=== PATIENT | male | born 1960 | race Caucasian/White ===

== ENCOUNTER → 2017-08-20 16:04 | Outpatient (CLI) | payer OTHER, SELFPAY ==
--- NOTE | 2017-08-20 16:08 | MRI_ITS ---
STUDY: MRI RIGHT SHOULDER REASON FOR EXAM: Male, 57 years old. Pain. TECHNIQUE: Standardized fat and water weighted pulse sequences were obtained in all 3 orthogonal planes. COMPARISON: November 11, 2016 FINDINGS: There is tendon thickening with intratendinous decreased signal on all pulse sequences of the supraspinatus and infraspinatus and subscapularis tendons consistent with a calcific tendinitis, series 4 images 12/12 through . There is no full-thickness tear. Normal teres minor tendon. Normal supraspinatus muscle. Normal infraspinatus muscle. Normal subscapularis muscle. Normal teres minor muscle. Normal glenohumeral articulation. Normal humeral head and visualized proximal humerus. Normal biceps labral complex. Normal intracapsular long biceps tendon. Normal labrum. Normal capsulo- ligamentous complex. Normal rotator interval. 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 There is a Type I morphology (flat undersurface) acromion, with a neutral orientation. There is no subacromial-subdeltoid bursal fluid. Normal visualized coracohumeral and coracoacromial ligaments. Normal quadrilateral space. Normal axillary space. Normal deltoid muscle. Normal trapezius muscle. MRI/Upper Ext Joint Only(Routine) IMPRESSION: Calcific tendinopathy of the rotator cuff. No full thickness tear.. Acromioclavicular spurring with impingement. Electronically Signed: Braulio Villeda MD at 23:12 EDT , Service support ,
== END ==
PROVIDERS: Family Provider Family Medicine; PCP Family Medicine; Visit Provider Orthopaedic Surgery
DX: M75.101 Unspecified rotator cuff tear or rupture of right shoulder, not specified as traumatic (principal); M75.41 Impingement syndrome of right shoulder
CPT/HCPCS: 73221

== ENCOUNTER → 2017-09-24 08:57 | Outpatient (CLI) | payer OTHER, SELFPAY ==
--- NOTE | 2017-09-24 09:00 | RAD_ITS ---
STUDY: X-RAY - CERVICAL SPINE REASON FOR EXAM: Male, 57 years old. Neck and right shoulder pain. TECHNIQUE: 5 view(s) of the cervical spine were obtained. COMPARISON: None FINDINGS: There are degenerative changes of the anterior atlantoaxial articulation. Normal odontoid process. Normal cervical lordosis. There is multi-level endplate spondylosis. There is moderate degenerative disc disease and narrowing at C5-6, as well as narrowing to a lesser degree at C3-4. 1 degenerative arthroses of the cervical facet articulations. Mild retrolisthesis of C5 on C6. There is multi-level osseous foraminal stenosis, as prominent on the left at C3-4. There are atherosclerotic vascular calcifications of the carotid arteries. There is no demonstrated osseous destructive process or acute fracture of the cervical spine. RAD/Cerv Spine 4 or 5 Views IMPRESSION: 1. Degenerative changes of the cervical spine, as described. 2. Bilateral carotid artery calcifications incidentally noted. Electronically Signed: Dexter Rivers MD at 13:26 EDT , Service support ,
== END ==
PROVIDERS: Family Provider Family Medicine; PCP Family Medicine; Visit Provider Orthopaedic Surgery
DX: M47.892 Other spondylosis, cervical region (principal); M50.322 Other cervical disc degeneration at C5-C6 level; M48.02 Spinal stenosis, cervical region; I65.23 Occlusion and stenosis of bilateral carotid arteries
CPT/HCPCS: 72050

== ENCOUNTER → 2017-10-13 09:29 | Outpatient (CLI) | payer OTHER, SELFPAY ==
--- NOTE | 2017-10-13 09:40 | MRI_ITS ---
STUDY: MRI CERVICAL SPINE WITHOUT CONTRAST REASON FOR EXAM: Male, 57 years old. Right-sided neck pain radiating to the right shoulder for 2 to 3 years. TECHNIQUE: Standardized fat and water weighted pulse sequences were obtained in the sagittal and axial planes. COMPARISON: None FINDINGS: Normal foramen magnum and brainstem-cervical cord junction. Normal craniovertebral junction. There are degenerative changes of the anterior atlantoaxial articulation. Normal odontoid process. Normal cervical lordosis. Normal vertebral bodies and posterior osseous elements. C2-3: Normal endplates. Normal disc height, signal and morphology. Normal central canal and intervertebral neural foramina. C3-4: Normal endplates. Normal disc height, signal and morphology. Normal central canal. There is severe left-sided neural foraminal narrowing with probable nerve impingement. There is moderate right-sided neural foraminal narrowing. There is moderate uncovertebral and facet joint arthropathy. C4-5: There is mild disc bulge and osteophyte complex. There is moderate left-sided neural foraminal narrowing and mild right-sided neural foraminal narrowing. There is no significant central acquired canal stenosis. There is uncovertebral joint hypertrophy. C5-6: There is moderately large right central broad disc protrusion with moderate acquired canal stenosis and probable impingement of spinal cord. There is severe bilateral neural foraminal narrowing, right greater left with probable nerve impingement. There is uncovertebral and facet joint arthropathy. C6-7: There is a broad central disc protrusion with mild central acquired canal stenosis. There is severe bilateral neural foraminal narrowing with probable nerve impingement. C7-T1: Normal endplates. Normal disc height, signal and morphology. Normal central canal and intervertebral neural foramina. Normal cervical cord. There is no demonstrated cervical cord syrinx cavity. Normal visualized soft tissue structures. MRI/Spine Cervical (Routine) IMPRESSION: Multilevel degenerative disc disease and degenerative arthropathy of cervical spine with acquired canal stenosis, neural foraminal narrowing and potential nerve impingement, as described. Electronically Signed: Sera Puentes MD at 11:21 EDT , Service support ,
== END ==
PROVIDERS: Family Provider Family Medicine; PCP Family Medicine; Visit Provider Orthopaedic Surgery
DX: M47.812 Spondylosis without myelopathy or radiculopathy, cervical region (principal); M50.31 Other cervical disc degeneration, high cervical region; M48.02 Spinal stenosis, cervical region
CPT/HCPCS: 72141

== ENCOUNTER → 2017-11-04 06:26 | Outpatient (CLI) | payer OTHER, SELFPAY ==
[2017-11-04 07:52] LABS: Hematocrit 43.2 % (40-54); Hemoglobin 15.3 g/dl (13.0-16.5); Mean Corp Hgb Conc 35.4 g/gl (32-36); Mean Corpuscular Hgb 30.8 pg (27.0-32.0); Mean Corpuscular Volume 87.1 fL (80-94); Mean Platelet Vol. 10.7 fl (6.2-12.0); Platelet Count 233 K/mm3 (150-450); RBC Distribution Width SD 40.3 fl (35.1-43.9); Red Blood Count 4.96 M/mm3 (4.6-6.2); White Blood Count 7.2 K/mm3 (4.4-11.0)
[2017-11-04 07:54] LABS: Scan Indicated on CBC? Y/N NO
[2017-11-04 08:22] LABS: ALB/GLOB Ratio 1.3 RATIO (0.9-2.4); AST(SGOT) 12 U/L (15-37); Alanine Aminotransfer ALT/SGPT 34 U/L (16-61); Albumin, Serum 4.1 g/dL (3.2-5.0); Alkaline Phosphatase 59 U/L (45-117); Anion Gap 7 (5-15); BUN 19 mg/dL (7-18); BUN/Creat Ratio 16.4 RATIO (10-20); Calcium,Total 8.7 mg/dL (8.5-10.1); Chloride 105 mmol/L (98-107); Cholesterol 101 mg/dL (200); Creatinine, Serum 1.16 mg/dL (0.70-1.30); EST Glomerular Filtration Rate 69 mL/min (>60); Est Glom Filt Rate - Afr Amer 84 mL/min (>60); Globulin 3.2 g/dL (2.2-4.2); Glucose 87 mg/dL (74-106); High Density Lipoprotein 39 mg/dL; Protein, Total 7.3 g/dL (6.4-8.2); Sodium Level 140 mmol/L (136-145); Triglycerides 219 mg/dL; Very Low Density Lipoprotein 44 mg/dL (5-40)
[2017-11-04 08:23] LABS: Hemoglobin A1c 8.1 % (4.2-6.3)
[2017-11-04 09:11] LABS: Microalbumin,Random Urine 7.6 mg/L (NO RANGE EST.); Microalbumin:Creatinine Ratio 5.4 mg/g CRE (<30 mg/g CRE)
== END ==
PROVIDERS: Family Provider Family Medicine; PCP Family Medicine; Visit Provider Internal Medicine
DX: E11.9 Type 2 diabetes mellitus without complications (principal)
CPT/HCPCS: 36415; 80053; 80061; 82043; 82570; 83036; 85027

== ENCOUNTER → 2018-01-13 06:33 | Outpatient (CLI) | payer OTHER, SELFPAY ==
[2018-01-13 08:19] LABS: Thyroid Stim Hormone (TSH) 3.27 uIU/mL (0.358-3.74)
[2018-01-13 09:12] LABS: Hemoglobin A1c 6.9 % (4.2-6.3)
== END ==
PROVIDERS: Family Provider Family Medicine; PCP Family Medicine; Visit Provider Internal Medicine
DX: E10.9 Type 1 diabetes mellitus without complications (principal)
CPT/HCPCS: 36415; 83036; 84443

== ENCOUNTER → 2018-03-13 07:14 | Outpatient (CLI) | payer OTHER, SELFPAY ==
[2018-03-13 08:39] LABS: Thyroid Stim Hormone (TSH) 3.05 uIU/mL (0.358-3.74)
[2018-03-16 14:07] LABS: Testosterone, Free 9.24 ng/dL (5.00-21.00)
[2018-03-17 14:29] LABS: Testosterone, % Free 2.98 % (1.50-4.20); Testosterone, Total 310 ng/dL (264-916)
== END ==
PROVIDERS: Family Provider Family Medicine; PCP Family Medicine; Referring Provider Family Medicine; Visit Provider Family Medicine
DX: E11.9 Type 2 diabetes mellitus without complications (principal); E78.2 Mixed hyperlipidemia
CPT/HCPCS: 36415; 84402; 84403; 84443

== ENCOUNTER 2018-05-07 08:21 | Emergency (ER) | payer OTHER, SELFPAY ==
[2018-05-07 08:23] VITALS: BP 126/84; PULSE 89; RESP 16; TEMP 35.8; O2SAT 97; BMI 24.9
--- NOTE | 2018-05-07 08:37 | ED.VISSUMM ---
- ER Visit Summary Date of Service: 05/07/18 Chief Complaint: Laceration History of Present Illness: The patient is a 58 M who presents with a small superficial laceration to his right index finger. Patient was in surgery and was accidentally cut with the tip of a scalpel that was used during surgery. Patient states the bleeding was mild. Patient cleaned the wound. Patient does not think that the source patient was positive for hepatitis or HIV. Patient denies any paresthesias or weakness. Patient states the bleeding stopped with pressure. Physical Examination: Vital signs are stable. Patient is afebrile. Patient is in no acute distress. Oral mucosa is pink and moist. Heart was regular rate and rhythm. Lungs are clear and equal bilaterally. There is good respiratory effort noted. Skin is warm and dry. There is a 1 mm superficial laceration over the distal phalanx of the right index finger. There is minimal bleeding. There is no gapping. Sensation was intact to light touch in all digits. Capillary refill is less than 2 seconds in all digits. There is full range of motion. The remaining physical exam is within normal limits. Test Results: Exposure protocol labs were obtained. Emergency Department Course and Treatment: Patient states his tetanus was within 10 years. Patient declined HIV and hepatitis B prophylaxis medications at this time. Patient was instructed to follow-up with employee health in 5-7 days. Patient was instructed to have the source patient tested for exposure protocols. Patient understood and was agreeable with the plan. All questions were answered. Disposition: Discharged Impression: Right index finger laceration Blood-borne exposure This note was generated with [employer] dictation software. It may contain incorrect words, spelling, and punctuation that were not noted in review of the chart prior to signing ED Disposition - Plan for ED Patient: Disposition: Home or Assisted Living Chief Complaint: Laceration Diagnosis: Laceration of right index finger w/o foreign body w/o damage to nail, Exposure to blood-borne pathogen Instructions: ED Laceration Small Superf No Sutr, Bloodborne Pathogens: If You're Exposed, Bloodborne Pathogens: After an Accident Referrals: Alexander Garibay DO [Primary Care Provider] -
[2018-05-07 10:39] LABS: HIV - WCH Non-Reactive (Nonreactive)
[2018-05-08 09:16] LABS: HEPATITIS B SURFACE AG Negative (Negative); Hep B Surface Antibodies EMP Reactive (.); Hep C Antibodies 0.1 s/co ratio (0.0-0.9)
--- OUTSIDE RECORDS SUMMARY | 2018-06-23 02:04 | XMS RPT_ITS ---
:1960 Author Organization OHIP Support Name Relationship Address Phone WARD MARTINEZ Unavailable Unavailable + [facility] Unavailable [address] + [place] [address] JUANWARD UGARTE Unavailable Unavailable + [facility] Unavailable [address] + [place] [address] WARD MARTINEZ Unavailable Unavailable + [facility] Unavailable [address] + [place] [address] WARD MARTINEZ Unavailable Unavailable + [facility] Unavailable [address] + [place] [address] JUAN WARD Unavailable Unavailable + [facility] Unavailable [address] + [place] [address] WARD MARTINEZ Unavailable Unavailable + [facility] Unavailable [address] + [place] [address] JUAN, WARD Unavailable Unavailable + [facility] Unavailable [address] + [place] [address] JUAN, WARD Unavailable . + ., [place] . [facility] Unavailable [address] + [place] [address] WARD MARTINEZ Unavailable . + ., [place] . [facility] Unavailable [address] + [place] [address] JUAN WARD Unavailable Unavailable + [facility] Unavailable [address] + [place] [address] JUANWARD UGARTE Unavailable . + ., [place] . [facility] Unavailable [address] + [place] [address] Care Team Providers Name Role Phone ALEXANDER GARIBAY Attending Unavailable PHOENIX, ALEXANDER Referring Unavailable Phoenix, Alexander Primary Care Unavailable Kristopher Granado Attending Unavailable RUDICK, JACQUELIN Attending Unavailable RUDICK, JACQUELIN Referring Unavailable Phoenix, Alexander Primary Care Unavailable Ward, Sunny Attending Unavailable Phoenix, Alexander Referring Unavailable Phoenix, Alexander Primary Care Unavailable Ward, Sunny Attending Unavailable Phoenix, Alexander Primary Care Unavailable Ward, Sunny Referring Unavailable Wrad, Sunny Attending Unavailable Phoenix, Alexander Referring Unavailable Phoenix, Alexander Primary Care Unavailable Ward, Sunny Attending Unavailable Ward, Sunny Referring Unavailable Phoenix, Alexander Primary Care Unavailable Ward, Sunny Attending Unavailable Ward, Sunny Referring Unavailable Phoenix, Alexander Primary Care Unavailable RUDICK, JACQUELIN Attending Unavailable RUDICK, JACQUELIN Referring Unavailable Phoenix, Alexander Primary Care Unavailable RUDICK, JACQUELIN Attending Unavailable RUDICK, JACQUELIN Referring Unavailable Phoenix, Alexander Primary Care Unavailable ASSESSMENT, HEALTH RISK Attending Unavailable ASSESSMENT, HEALTH RISK Referring Unavailable Phoenix, Alexander Primary Care Unavailable Phoenix, Alexander Attending Unavailable Phoenix, Alexander Referring Unavailable Phoenix, Alexander Primary Care Unavailable PROBLEMS PROBLEMS DATE TYPE CONDITION / CODE ATTENDING STATUS SOURCE 05/12/2018 Unknown S61.210A - Jethro Granadoic Active [place] Laceration without Community foreign body of Hospital right index finger Repository without damage to nail, initial encounter / S61.210A(ICD-10) 03/13/2018 Unknown E11.9 - Type 2 Phoenix Alexander Active [place] diabetes mellitus Community without Hospital complications / Repository E11.9(ICD-10) 01/13/2018 Unknown E10.9 - Type 1 MYRON, JACQUELIN Active [place] diabetes mellitus Community without Hospital complications / Repository E10.9(ICD-10) 10/13/2017 Unknown 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, Repository cervical region / M47.812(ICD-10) 09/24/2017 Unknown M54.2 - Cervicalgia Sunny Thomas [place] / M54.2(ICD-10) Community Hospital Repository 09/24/2017 Unknown M25.512 - Pain in Sunny Thomas left shoulder / Community M25.512(ICD-10) Hospital Repository 08/06/2017 Unknown M75.101 - Sunny Thomas Unspecified rotator Community cuff tear or Hospital rupture of right Repository shoulder, not specified as traumatic / M75.101(ICD-10) PROCEDURES PROCEDURES No Procedure Records FoundRESULTS RESULTS HEMOGLOBIN A1C Collected: 06/09/2018 Status: F Source: [place] 6:57 AM [facility] REPOSITORY TYPE CODE TESTS RESULT OUT OF RANGE REFERENCE UNITS LAB L501.9985 4.2-6.3 % High HGB A1C 8.0 Performed By: #### L501.9985 #### [facility] [address] [place], [address] HIV - [facility] Collected: 05/07/2018 Status: F Source: [place] 9:05 AM [facility] REPOSITORY Order Comment: Has pt arrived? Y TYPE CODE TESTS RESULT OUT OF RANGE REFERENCE UNITS LAB L3890.6005 Nonreactive Normal HIV - [facility] Non-Reactive Performed By: #### L3890.6005 #### [facility] [address] [place], [place], [address] HEPATITIS B SURFACE Collected: 05/07/2018 Status: F Source: [place] AG 9:05 AM [facility] REPOSITORY Order Comment: Has pt arrived? Y TYPE CODE TESTS RESULT OUT OF RANGE REFERENCE UNITS LAB L3100.0400 Negative Normal HB Negative SURF AG Result Comment: Performed at: - [facility] [id number] Manager Packaging: Javier Johns PhD, Phone: [phone] Performed By: #### L3100.0390, L3100.0567, L3100.0666 #### [facility] (refer to report for specific site) refer to report for address and phone number HEP B SURFACE Collected: 05/07/2018 Status: F Source: [place] ANTIBODIES EMP 9:05 AM [facility] REPOSITORY Order Comment: Has pt arrived? Y TYPE CODE TESTS RESULT OUT OF RANGE REFERENCE UNITS LAB L3100.0537 . Normal Hep B Reactive Ralph AB Result Comment: Non Reactive: Inconsistent with immunity, less than 10 mIU/mL Reactive: Consistent with immunity, greater than 9.9 mIU/mL Performed By: #### L3100.0390, L3100.0537, L3100.0625 #### [facility] (refer to report for specific site) refer to report for address and phone number HEPATITIS C ANTIBODIES Collected: 05/07/2018 Status: F Source: [place] 9:05 AM [facility] REPOSITORY Order Comment: Has pt arrived? Y TYPE CODE TESTS RESULT OUT OF RANGE REFERENCE UNITS LAB L3100.0650 0.0-0.9 s/co ratio Normal HEP C AB 0.1 Result Comment: Negative: < 0.8 Indeterminate: 0.8 - 0.9 Positive: > 0.9 The CDC recommends that a positive HCV antibody result be followed up with a HCV Nucleic Acid Amplification test (081928). Performed By: #### L3100.0390, L3100.0537, L3100.0625 #### [facility] (refer to report for specific site) refer to report for address and phone number EMERGENCY DEPARTMENT Observed: 05/07/2018 Status: F Source: [place] SUMMARY 8:48 AM [facility] REPOSITORY [facility] Medical Records Department [address] [place] [address] Emergency Department Summary 05/07/18 0837 MR#: [id number] Acct: [id number] Name: CHRIS MARTINEZ Rep #: [id number] : 1960 58 From: Kristopher Granado DO PCP: Alexander Garibay DO Status: PRE ER - ER Visit Summary Date of Service: 05/07/18 Chief Complaint: Laceration History of Present Illness: The patient is a 58 M who presents with a small superficial laceration to his right index finger. Patient was in surgery and was accidentally cut with the tip of a scalpel that was used during surgery. Patient states the bleeding was mild. Patient cleaned the wound. Patient does not think that the source patient was positive for hepatitis or HIV. Patient denies any paresthesias or weakness. Patient states the bleeding stopped with pressure. Physical Examination: Vital signs are stable. Patient is afebrile. Patient is in no acute distress. Oral mucosa is pink and moist. Heart was regular rate and rhythm. Lungs are clear and equal bilaterally. There is good respiratory effort noted. Skin is warm and dry. There is a 1 mm superficial laceration over the distal phalanx of the right index finger. There is minimal bleeding. There is no gapping. Sensation was intact to light touch in all digits. Capillary refill is less than 2 seconds in all digits. There is full range of motion. The remaining physical exam is within normal limits. Test Results: Exposure protocol labs were obtained. Emergency Department Course and Treatment: Patient states his tetanus was within 10 years. Patient declined HIV and hepatitis B prophylaxis medications at this time. Patient was instructed to follow-up with employee health in 5-7 days. Patient was instructed to have the source patient tested for exposure protocols. Patient understood and was agreeable with the plan. All questions were answered. Disposition: Discharged Impression: Right index finger laceration Blood-borne exposure This note was generated with Qianmi dictation software. It may contain incorrect words, spelling, and punctuation that were not noted in review of the chart prior to signing ED Disposition - Plan for ED Patient: Disposition: Home or Assisted Living Chief Complaint: Laceration Diagnosis: Laceration of right index finger w/o foreign body w/o damage to nail, Exposure to blood-borne pathogen Instructions: ED Laceration Small Superf No Sutr, Bloodborne Pathogens: If You're Exposed, Bloodborne Pathogens: After an Accident Referrals: Alexander Garibay, DO [Primary Care Provider] - What to do if you have Problems For any increased pain, shortness of breath, bleeding, nausea or vomiting, chest pain, or any unexpected problems, contact your Primary Care Provider. Call [facility] ([phone]) or report to the closest Emergency Room. Call 911 if necessary. 05/07/18 0848 <Electronically signed by Kristopher Granado DO> Date Kristopher Granado DO Cosigner Signature (If Indicated): Date CC: Alexander Garibay DO THYROID STIM HORMONE Collected: 03/13/2018 Status: F Source: [place] (TSH) 7:16 AM [facility] REPOSITORY TYPE CODE TESTS RESULT OUT OF RANGE REFERENCE UNITS LAB L501.9520 0.358-3.74 uIU/mL Normal TSH 3.05 Performed By: #### L501.9520 #### [facility] [address] [place], [address] TESTOSTERONE, TOTAL / Collected: 03/13/2018 Status: F Source: [place] FREE 7:16 AM [facility] REPOSITORY Order Comment: Has Patient had X-rays with Contrast this admission? N TYPE CODE TESTS RESULT OUT OF RANGE REFERENCE UNITS LAB L3100.5320 264-916 ng/dL Normal 310 TESTOSTER,TO PARAM Result Comment: Adult male reference interval is based on a population of healthy nonobese males (BMI <30) between 19 and 39 years old. Antwon et.al. JCEM 2017,102;2338-6496. PMID: [id number]. LAB L3100.5340 5.00-21.00 ng/dL TESTOSTER,FREE Normal 9.24 LAB L3100.5360 1.50-4.20 % TESTOSTER %FREE Normal 2.98 Result Comment: Performed at: - [facility] [address] [id number] Manager Packaging: Javier Johns PhD, Phone: [phone] Performed at: - [facility] [address] [id number] Manager Packaging: Ricardo Portillo MD, Phone: [phone] Performed By: #### L3100.5310 #### [facility]er [facility] for specific [facility] refer to report for address and phone number PROGRESS Observed: 02/13/2018 Status: COMPLETED Source: [place] 4:57 PM [facility] REPOSITORY HNO ID: [id number] Author: Alexander Garibay V Service: (none) Author Type: Physician Type: Progress Notes Filed: 02/13/2018 5:00 PM Note Text: Chris Martinez is a 58 year old male who presents in follow up of DM and Hyperlipidemia. overall feeing well. Discusses occasional mood issues. DIABETES MELLITUS: Mr. Martinez was last seen 1 year ago. Since our last visit he denies excessive thirst or increased frequency of urination, chest pain or dyspnea , new or unusual visual symptoms, lightheadedness/dizziness and bowel changes/loose stools. Follows a diabetic diet most of the time. He is compliant with medication(s) and is tolerating med(s) without any side effects. Patient's last HgA1C was 6.9% at endocrinologists office- Dr. Jacquelin Morris Last Ophthalmology exam was within the past 12 months Hyperlipidemia. Mr. Martinez reports doing well on current therapy of atorvastatin (Lipitor) 20 mg. Denies side effects of muscle weakness or achiness. His most recent lipid panels are: scanned into computer PHYSICAL EXAM: BP 133/83 (BP Site: Right Arm) Pulse 79 Resp 14 Ht 180.3 cm (5' 11) Wt 81.6 kg (180 lb) BMI 25.10 kg/m? BMI 25.10 kg/(m2) General appearance: Alert, cooperative, pleasant, in no acute distress Head: Normocephalic, atraumatic Eyes: conjunctiva/corneas normal, PERRL Oropharynx: moist without lesions, teeth in good repair Neck: supple and no JVD Heart: regular rate and rhythm, without murmur Lungs: clear to auscultation, without rales or wheeze, good air exchange Abdomen:soft, nondistended, nontender, no hepatosplenomegaly or masses Assessment/Plan: 1. Diabetes Mellitus Controlled. - Continue current medications 2. Hyperlipidemia - good control - Continue current medication. additional labs ordered today see epic Alexander Garibay DO PROGRESS Observed: 02/13/2018 Status: COMPLETED Source: [place] 3:49 PM [facility] REPOSITORY HNO ID: [id number] Author: Dannielle Wyman) KENROY Ortez Service: (none) Author Type: Registered Nurse Type: Progress Notes Filed: 02/13/2018 5:00 PM Note Text: AMB ROOMING INTAKE FLOWSHEET DATA Risk Screening Do you have concerns about personal safety or safety in the home?: No Pain Pain Score: 2/10 Pain Location: (all fingers ) Description: Sharp Duration Amount of Time: 2 Duration Units: Days Comments: None Patient presents with: Established Patient: annual physical patient is here for yearly physical. Dannielle Ortez RN CNOV Observed: 02/13/2018 Status: COMPLETED Source: [place] 3:40 PM [facility] REPOSITORY Office Visit (UC) CHRIS MARTINEZ ([id number]) 1960 M Date Time Provider Department 02/13/18 3:40 PM ALEXANDER GARIBAY During your visit today, we recorded the following information about you: Pulse Respiration Blood pressure Weight 79/minute 14/minute 133/83 81.6 kg Height 1.803 m Dannielle Ortez RN, RN 02/13/2018 5:00 PM Signed AMB ROOMING INTAKE FLOWSHEET DATA Risk Screening Do you have concerns about personal safety or safety in the home?: No Pain Pain Score: 2/10 Pain Location: (all fingers ) Description: Sharp Duration Amount of Time: 2 Duration Units: Days Comments: None Patient presents with: Established Patient: annual physical patient is here for yearly physical. KENROY Zapata DO 02/13/2018 5:00 PM Signed Chris Joana Juan is a 58 year old male who presents in follow up of DM and Hyperlipidemia. overall feeing well. Discusses occasional mood issues. DIABETES MELLITUS: Mr. Martinez was last seen 1 year ago. Since our last visit he denies excessive thirst or increased frequency of urination, chest pain or dyspnea , new or unusual visual symptoms, lightheadedness/dizziness and bowel changes/loose stools. Follows a diabetic diet most of the time. He is compliant with medication(s) and is tolerating med(s) without any side effects. Patient's last HgA1C was 6.9% at endocrinologists office- Dr. Jacquelin Morris Last Ophthalmology exam was within the past 12 months Hyperlipidemia. Mr. Martinez reports doing well on current therapy of atorvastatin (Lipitor) 20 mg. Denies side effects of muscle weakness or achiness. His most recent lipid panels are: scanned into computer PHYSICAL EXAM: BP 133/83 (BP Site: Right Arm) Pulse 79 Resp 14 Ht 180.3 cm (5' 11) Wt 81.6 kg (180 lb) BMI 25.10 kg/m? BMI 25.10 kg/(m2) General appearance: Alert, cooperative, pleasant, in no acute distress Head: Normocephalic, atraumatic Eyes: conjunctiva/corneas normal, PERRL Oropharynx: moist without lesions, teeth in good repair Neck: supple and no JVD Heart: regular rate and rhythm, without murmur Lungs: clear to auscultation, without rales or wheeze, good air exchange Abdomen:soft, nondistended, nontender, no hepatosplenomegaly or masses Assessment/Plan: 1. Diabetes Mellitus Controlled. - Continue current medications 2. Hyperlipidemia - good control - Continue current medication. additional labs ordered today see [facility] Alexander Garibay DO Referring Provider: ALEXANDER GARIBAY V [[id number]] Allergies As of Date: 02/13/2018 (No Known Allergies) Date Reviewed: 02/13/2018 Reviewed by: Dannielle (Rn) KENROY Ortez - Fully Assessed Reason for Visit: Established Patient [175] Cmt: annual physical Primary Visit Diagnosis:Controlled type 2 diabetes mellitus without complication, without long-term current use of insulin (HCC) [E11.9] Other Visit Diagnoses:Mixed hyperlipidemia [E78.2] Skin lesion [L98.9] Order(s):CONSULT TO DERMATOLOGY [9006] Order #: [id number]: 1 CONSULT TO ENDOCRINOLOGY [9007] Order #: [id number]: 1 CONSULT TO OPHTHALMOLOGY [9024] Order #: [id number]: 1 TSH BLD [SQTSH] Order #: [id number] FUTURE TESTOSTERONE, FREE AND TOTAL [SQFTESTO] Order #: [id number] FUTURE Prescriptions as of 02/13/2018 Sig: EMPAGLIFLOZIN 10 MG TABLET Take 10 mg by mouth daily wit* ATORVASTATIN 20 MG TABLET Take 1 tablet by mouth once d* SITAGLIPTIN 100 MG TABLET Take 1 tablet by mouth once d* FENOFIBRATE NANOCRYSTALLIZED * Take 1 tablet by mouth once d* GLIMEPIRIDE 2 MG TABLET Take 1 tablet by mouth twice * METFORMIN ER 500 MG TABLET,EX* Take 4 tablets by mouth once * * ASPIRIN 81 MG TABLET,DELAYED * Take one(1) tablet daily. CYCLOBENZAPRINE 10 MG TABLET Take 1 tablet by mouth three * BLOOD SUGAR DIAGNOSTIC STRIPS 1 Strip as directed. Use as i* VARDENAFIL 20 MG TABLET Take 20 mg by mouth as needed. * COMPOUNDED PRESCRIPTION protfrances south x3 / wk Medication notes this encounter VARDENAFIL 20 MG TABLET >> Dannielle Ortez, RN, RN 02/13/2018 3:48 PM >> DANNIELLE ORTEZ FriFeb 13, 2018 3:48 PM Not taking Problem List As Of Date 02/13/2018 Noted Resolved Diabetes mellitus type 2, controlled, without c* MIXED HYPERLIPIDEMIA [E78.2] Spermatocele [N43.40] INVALID FOR* Testicular Pain [N50.819] INVALID FOR* Skin lesion [L98.9] INVALID FOR* Encounter Status:Closed by ALEXANDER GARIBAY DO, V on 02/13/18 CBC, EMPLOYEE Collected: 02/06/2018 Status: F Source: [place] 6:44 AM [facility] REPOSITORY TYPE CODE TESTS RESULT OUT OF RANGE REFERENCE UNITS LAB L100.1000 4.4-11.0 K/mm3 Normal WBC 7.3 LAB L100.1200 4.6-6.2 M/mm3 Normal RBC 4.97 LAB L100.1300 13.0-16.5 g/dl Normal HGB 15.1 LAB L100.1400 40-54 % Normal HCT 43.5 LAB L100.1500 80-94 fL Normal MCV 87.5 LAB L100.1600 27.0-32.0 pg Normal MCH 30.4 LAB L100.1700 32-36 g/gl Normal MCHC 34.7 LAB L100.1810 11.6-14.6 % Normal RDW CV 13.0 LAB L100.1820 35.1-43.9 fl Normal RDW SD 40.8 LAB L100.1900 150-450 K/mm3 Normal PLT 221 LAB L100.2000 6.2-12.0 fl Normal MPV 11.0 LAB L100.2110 47-70 % Normal NEUT% 48.4 LAB L100.2210 19-41 % Normal LY% 32.9 LAB L100.2310 0-10 % High MONO% 11.4 LAB L100.2410 0-5 % High EO% 6.6 LAB L100.2510 0-1 % Normal BASO% 0.4 LAB L100.2620 2.0-7.7 X10 3/uL Normal Absolute Neut 3.5 LAB L100.2720 0.83-4.51 X10 3/ul Normal Absolute Lymph 2.39 Performed By: #### L100.0200 #### [facility] [address] [place], [place], [address] NICOTINE URINE DRUG Collected: 02/06/2018 Status: F Source: [place] SCREEN 6:44 AM [facility] REPOSITORY TYPE CODE TESTS RESULT OUT OF RANGE REFERENCE UNITS LAB L505.6250 TO BE Normal CONFIRMED Result Comment: CONFIRMATORY TESTING FOR ALL POSITIVE URINE DRUG SCREEN RESULTS WILL ONLY BE SENT OUT UPON PHYSICIAN ORDER. The results of Urine Drug Screen methods provide only preliminary analytical test results. A more specific alternate chemical method must be used in order to obtain a confirmed analytical result. Gas chromatography/mass spectrometery (GC/MS) is the preferred confirmatory method. Clinical consideration and professional judgement should be applied to any drug of abuse test result, particularly when preliminary positive results are used. LAB L505.6270 <200 ng/mL Normal COT DRG Negative SCREEN Result Comment: Cotinine is the first-stage metabolite of Nicotine. Performed By: #### L505.6240 #### [facility] [address] [place], [place], [address] URINALYSIS, EMPLOYEE Collected: 02/06/2018 Status: F Source: [place] 6:44 AM [facility] REPOSITORY TYPE CODE TESTS RESULT OUT OF RANGE REFERENCE UNITS LAB L400.3000 Yellow COLOR Normal Yellow LAB L400.3050 Clear Normal CLARITY Clear LAB L400.3200 Normal mg/dl High GLUCOSE, UR 1000 LAB L400.3300 Negative mg/dL Normal BILIRUBIN URINE Negative LAB L400.3400 Negative mg/dl Normal KETONE UR Negative LAB L400.3465 1.002-1.030 Normal SP.GR. DIPSTX 1.020 LAB L400.3550 5.0 - 8.0 pH UR Normal 5.0 LAB L400.3600 Negative mg/dl PROT Normal DIPSTX Negative LAB L400.3700 Normal mg/dl Normal UROBILI Normal LAB L400.3750 Negative Normal NITRITE UR Negative LAB L400.3780 Negative /ul Normal OCCULT BLOOD-UR Negative LAB L400.3800 Negative /ul LEUK Normal ESTERASE Negative Performed By: #### L400.0100 #### [facility] [address] [place], [address] EMPLOYEE PROFILE Collected: 02/06/2018 Status: F Source: [place] 6:44 AM [facility] REPOSITORY TYPE CODE TESTS RESULT OUT OF RANGE REFERENCE UNITS LAB L501.0100 74-106 mg/dL High GLU 133 Result Comment: Fasting Glucose result greater than or equal to 126 mg/dL suggests DIABETES MELLITUS per A.D.A. criteria. Please note revised GLUCOSE reference range effective 2017. LAB L501.1000 7-18 mg/dL High BUN 23 LAB L501.1100 0.70-1.30 mg/dL Normal CREAT,SERUM 1.18 Result Comment: The validity of the calculated GFR AND GFRAA in patients over 70 years has not been determined. Clinical correlation is essential. LAB L501.1110 >60 mL/min Normal EST GFR 68 Result Comment: Non- GFR Calc LAB L501.1115 >60 mL/min Normal EST GFR - AA 82 Result Comment: GFR Calc LAB L501.1300 10-20 RATIO Normal BUN/CRE 19.5 LAB L501.1400 3.5-7.2 mg/dL Normal URIC 4.7 Result Comment: The drugs N-Acetylcysteine and Metamizole may falsely depress this assay. LAB L501.1500 6.4-8.2 g/dL Normal T PROT 7.2 LAB L501.1800 3.2-5.0 g/dL Normal ALB 4.0 LAB L501.1950 2.2-4.2 g/dL Normal GLOB 3.2 LAB L501.2000 0.9-2.4 RATIO Normal A/G 1.2 LAB L501.2200 8.5-10.1 mg/dL Normal CA 8.6 LAB L501.2300 2.5-4.9 mg/dL Normal PHOS 3.4 LAB L501.4100 15-37 U/L Low AST 8 Result Comment: Slight Hemolysis, Result may be falsely increased. LAB L501.4305 45-117 U/L Normal ALK P 65 LAB L501.4405 16-61 U/L Normal ALT 32 LAB L501.4600 0.20-1.00 mg/dL Normal T BILI 0.50 LAB L501.4700 0.00-0.30 mg/dL Normal D BILI 0.09 LAB L501.4900 200 mg/dL Normal CHOL 157 Result Comment: <200 mg/dL Desirable 200-240 mg/dL Borderline >240 mg/dL High Risk LAB L501.5000 mg/dL High TRIG 548 Result Comment: The drugs N-Acetylcysteine and Metamizole may falsely depress this assay. TRIGLYCERIDE IS GREATER THAN 400 mg/dL. LDL RESULT IS INVALID AND WILL NOT BE REPORTED. Serum Triglycerides Reference Interval Normal <150 mg/dL Borderline high 150 - 199 mg/dL High 200 - 499 mg/dL Very High > or = 500 mg/dL LAB L501.5300 136-145 mmol/L Normal NA 140 LAB L501.5600 3.5-5.1 mmol/L Normal K 4.0 Result Comment: Slight Hemolysis, Result may be falsely increased. LAB L501.5900 98-107 mmol/L Normal CL 104 LAB L501.6100 21.0-32.0 mmol/L Normal CO2 26.0 LAB L501.6200 5-15 Normal GAP 10 LAB L501.6400 mg/dL Low HDL 34 Result Comment: The drugs N-Acetylcysteine and Metamizole may falsely depress this assay. Reference Range HDL <40 mg/dL Low HDL Cholesterol HDL >or= 60 mg/dL High HDL Cholesterol LAB L501.6475 Normal 4.60 CHOL:HDL LAB L501.6500 0-130 mg/dL Normal LDL Test not performed LAB L501.6600 5-40 mg/dL Normal VLDL Test not performed LAB L504.2610 87-241 U/L Normal LDH 183 Result Comment: Slight Hemolysis, Result may be falsely increased. Performed By: #### L500.2900 #### [facility] [address] [facility] [place], [place], [address] THYROID STIM HORMONE Collected: 01/13/2018 Status: F Source: [place] (TSH) 6:38 AM [facility] REPOSITORY TYPE CODE TESTS RESULT OUT OF RANGE REFERENCE UNITS LAB L501.9520 0.358-3.74 uIU/mL Normal TSH 3.27 Performed By: #### L501.9520 #### [facility] [address] [place], [address] HEMOGLOBIN A1C Collected: 01/13/2018 Status: F Source: [place] 6:38 AM [facility] REPOSITORY TYPE CODE TESTS RESULT OUT OF RANGE REFERENCE UNITS LAB L501.9985 4.2-6.3 % High HGB A1C 6.9 Performed By: #### L501.9985 #### [facility] [address] [place], [address] CBC-COMPLETE BLOOD CNT Collected: 11/04/2017 Status: F Source: AWILDA NO DIFF 6:30 AM [facility] REPOSITORY TYPE CODE TESTS RESULT OUT OF RANGE REFERENCE UNITS LAB L100.1000 4.4-11.0 K/mm3 Normal WBC 7.2 LAB L100.1200 4.6-6.2 M/mm3 Normal RBC 4.96 LAB L100.1300 13.0-16.5 g/dl Normal HGB 15.3 LAB L100.1400 40-54 % Normal HCT 43.2 LAB L100.1500 80-94 fL Normal MCV 87.1 LAB L100.1600 27.0-32.0 pg Normal MCH 30.8 LAB L100.1700 32-36 g/gl Normal MCHC 35.4 LAB L100.1810 11.6-14.6 % Normal RDW CV 13.0 LAB L100.1820 35.1-43.9 fl Normal RDW SD 40.3 LAB L100.1900 150-450 K/mm3 Normal PLT 233 LAB L100.2000 6.2-12.0 fl Normal MPV 10.7 Performed By: #### L100.0500 #### [facility] [address] [place], [place], [address] COMPREHENSIVE METABOLIC Collected: 11/04/2017 Status: F Source: AWILDA PROFIL 6:30 AM [facility] REPOSITORY TYPE CODE TESTS RESULT OUT OF RANGE REFERENCE UNITS LAB L501.0100 74-106 mg/dL Normal GLU 87 Result Comment: Please note revised GLUCOSE reference range effective 2017. LAB L501.1000 7-18 mg/dL High BUN 19 LAB L501.1100 0.70-1.30 mg/dL Normal CREAT,SERUM 1.16 Result Comment: The validity of the calculated GFR AND GFRAA in patients over 70 years has not been determined. Clinical correlation is essential. LAB L501.1110 >60 mL/min Normal EST GFR 69 Result Comment: Non- GFR Calc LAB L501.1115 >60 mL/min Normal EST GFR - AA 84 Result Comment: GFR Calc LAB L501.1300 10-20 RATIO Normal BUN/CRE 16.4 LAB L501.1500 6.4-8.2 g/dL T Normal PROT 7.3 LAB L501.1800 3.2-5.0 g/dL Normal ALB 4.1 LAB L501.1950 2.2-4.2 g/dL Normal GLOB 3.2 LAB L501.2000 0.9-2.4 RATIO Normal A/G 1.3 LAB L501.2200 8.5-10.1 mg/dL CA Normal 8.7 LAB L501.4100 15-37 U/L Low AST 12 LAB L501.4305 45-117 U/L Normal ALK P 59 LAB L501.4405 16-61 U/L Normal ALT 34 LAB L501.4600 0.20-1.00 mg/dL T Normal BILI 0.60 LAB L501.5300 136-145 mmol/L NA Normal 140 LAB L501.5600 3.5-5.1 mmol/L K Normal 4.0 LAB L501.5900 98-107 mmol/L CL Normal 105 LAB L501.6100 21.0-32.0 mmol/L Normal CO2 28.0 LAB L501.6200 5-15 Normal GAP 7 Performed By: #### L500.4050, L500.4100 #### [facility] [address] [place], [address] LIPID PROFILE Collected: 11/04/2017 Status: F Source: TEMPLE 6:30 AM [facility] REPOSITORY TYPE CODE TESTS RESULT OUT OF RANGE REFERENCE UNITS LAB L501.4900 200 mg/dL Normal CHOL 101 Result Comment: <200 mg/dL Desirable 200-240 mg/dL Borderline >240 mg/dL High Risk LAB L501.5000 mg/dL High TRIG 219 Result Comment: The drugs N-Acetylcysteine and Metamizole may falsely depress this assay. Serum Triglycerides Reference Interval Normal <150 mg/dL Borderline high 150 - 199 mg/dL High 200 - 499 mg/dL Very High > or = 500 mg/dL LAB L501.6400 mg/dL Low HDL 39 Result Comment: The drugs N-Acetylcysteine and Metamizole may falsely depress this assay. Reference Range HDL <40 mg/dL Low HDL Cholesterol HDL >or= 60 mg/dL High HDL Cholesterol LAB L501.6500 0-130 mg/dL Normal LDL 18 LAB L501.6600 5-40 mg/dL High VLDL 44 Performed By: #### L500.4050, L500.4100 #### [facility] [address] [place], [address] HEMOGLOBIN A1C Collected: 11/04/2017 Status: F Source: TEMPLE 6:30 AM [facility] REPOSITORY TYPE CODE TESTS RESULT OUT OF RANGE REFERENCE UNITS LAB L501.9985 4.2-6.3 % High HGB A1C 8.1 Performed By: #### L501.9985 #### [facility] [address] [place], [address] MICROALB:CREAT Collected: 11/04/2017 Status: F Source: TEMPLE RATIO,RANDOM UR 6:30 AM [facility] REPOSITORY TYPE CODE TESTS RESULT OUT OF RANGE REFERENCE UNITS LAB L501.1200 NO RANGE EST. mg/dL Normal UR CREAT 141.00 LAB L502.0500 NO RANGE EST. mg/L Normal 7.6 MICROALBUMIN ,UR LAB L502.0600 <30 mg/g CRE mg/g CRE Normal 5.4 MALB:CREAT Performed By: #### L502.0250 #### [facility] [address] [place], [address] SPINE CERVICAL Observed: 10/13/2017 Status: F Source: AWILDA (ROUTINE) 9:40 AM [facility] REPOSITORY [facility] Imaging Services [address] [place] [address] Spine Cervical (Routine) MR#: [id number] Acct: [id number] Name: CHRIS MARTINEZ Rep #: [id number] : 1960 M 57 From: Sera Puentes MD PCP: Alexander Garibay DO Status: REG CLI Study: Spine Cervical (Routine) Date of Exam: 10/13/17 Exam# [id number] Ordering Dr: Sunny Thomas DO STUDY: MRI CERVICAL SPINE WITHOUT CONTRAST REASON FOR EXAM: Male, 57 years old. Right-sided neck pain radiating to the right shoulder for 2 to 3 years. TECHNIQUE: Standardized fat and water weighted pulse sequences were obtained in the sagittal and axial planes. COMPARISON: None FINDINGS: Normal foramen magnum and brainstem-cervical cord junction. Normal craniovertebral junction. There are degenerative changes of the anterior atlantoaxial articulation. Normal odontoid process. Normal cervical lordosis. Normal vertebral bodies and posterior osseous elements. C2-3: Normal endplates. Normal disc height, signal and morphology. Normal central canal and intervertebral neural foramina. C3-4: Normal endplates. Normal disc height, signal and morphology. Normal central canal. There is severe left-sided neural foraminal narrowing with probable nerve impingement. There is moderate right-sided neural foraminal narrowing. There is moderate uncovertebral and facet joint arthropathy. C4-5: There is mild disc bulge and osteophyte complex. There is moderate left-sided neural foraminal narrowing and mild right-sided neural foraminal narrowing. There is no significant central acquired canal stenosis. There is uncovertebral joint hypertrophy. C5-6: There is moderately large right central broad disc protrusion with moderate acquired canal stenosis and probable impingement of spinal cord. There is severe bilateral neural foraminal narrowing, right greater left with probable nerve impingement. There is uncovertebral and facet joint arthropathy. C6-7: There is a broad central disc protrusion with mild central acquired canal stenosis. There is severe bilateral neural foraminal narrowing with probable nerve impingement. C7-T1: Normal endplates. Normal disc height, signal and morphology. Normal central canal and intervertebral neural foramina. Normal cervical cord. There is no demonstrated cervical cord syrinx cavity. Normal visualized soft tissue structures. MRI/Spine Cervical (Routine) IMPRESSION: Multilevel degenerative disc disease and degenerative arthropathy of cervical spine with acquired canal stenosis, neural foraminal narrowing and potential nerve impingement, as described. Electronically Signed: Sera Puentes MD at 11:21 EDT , Service support , CC: Alexander Garibay DO; Sunny Thomas DO Reel Assembler: Signed ORTHOPEDIC VISIT Observed: 10/06/2017 Status: F Source: TEM[place] REPORT 8:52 AM [facility] REPOSITORY [facility] [address] [place] [address] 5 [place] [address] OFFICE VISIT Date of Service: 09/24/17 MR#: [id number] Acct: [id number] Name: CHRIS MARTINEZ Rep #: [id number] : 1960 Provider: Sunny Thomas DO Age/Sex: 57/M Location: [facility] [place] [place]: Signed Intake Intake Visit Reasons: RIGHT SHOULDER Is patient in pain?: No Allergies No Known Allergies Allergy (Verified 08/06/17 08:07) Medications Aspirin [Aspirin, Baby] 81 mg PO DAILY@0800 09/15/14 [History Confirmed 08/06/17] Atorvastatin Calcium [Lipitor] 20 mg PO QHS 09/15/14 [History Confirmed 08/06/17] Fenofibrate [Tricor] 145 mg PO DAILY 09/15/14 [History Confirmed 08/06/17] Glimepiride [Amaryl] 2 mg PO BID 09/15/14 [History Confirmed 08/06/17] Metformin HCl [Glucophage] 500 mg PO 4X/DAY 09/15/14 [History Confirmed 08/06/17] Sitagliptin Phosphate [Januvia] 50 mg PO DAILY 09/15/14 [History Confirmed 08/06/17] [facility] Medical History Pneumonia (Acute) Skin cancer, basal cell (Acute) Diabetes (Chronic) Hyperlipidemia (Chronic) Surgical History VONNIE (Inactive) Ganglion cyst (Inactive) Inguinal hernia (Inactive) Family History Mother Diabetes Heart disease Social History Smoking Status: Former smoker HPI RIGHT SHOULDER: Details: CHRIS MARTINEZ is a 57 year old M here today for right shoulder and neck pain, however today his shoulder pain is much improved. He took a break from lifting and exercising and had good relief from shoulder pain as well as the shooting and numbing arm pain and when he began again he has had no return of symptoms. Today his neck pain is worse with right lateral bending and rotation but no radiating pain. He has limited rom to the right. His shoulder pain is increased in abduction and IR. ROS [facility] Reports joint swelling, Reports stiffness, Reports as per HPI Ortho Exam Right Shoulder Contralateral Normal: Yes Testing: Positive Hawkin's and Neer's SHOULDER: Patient is alert and oriented 3 no acute distress. Appropriate eye contact and affect. Patient shows weakness into the deltoid the C5-6 distribution with radiating pain across the lateral aspect of the deltoid and posteriorly. His right shoulder continues show mild Joyner and Neer's consistent with some calcific tendinitis but not associated with any weakness to the rotator cuff specifically. He has no pain currently across the biceps tendon. He has no active adenopathy has positive pulses his biceps and triceps appear to be 5 out of 5 he has some mild weakness with lateral abduction pain with radiating pain from C-spine. Cervical examination shows diminished range of motion to flexion extension. He has pain and radicular pain with side bending and rotation to the right. He has improved symptoms with side bending to the left and rotation. His extension is roughly 60 and flexion is about 25 . Rotation to the right is roughly 60 rotation left 60 with side bending is still limited to about 15-20 at best. Patient is tender palpation across the neural foramen with radicular pain near the C5-6 distributions. He has no midline step- off no obvious paraspinal musculature pain currently. X-rays: Of the C-spine. Evaluated by myself with the patient- patient shows multilevel degenerative disc disease with at C4-5 and 5 6. Patient shows bridging bridging osteophytic changes anteriorly and shows neural foraminal stenosis at the aforementioned levels with probable calcification of discs. Left Shoulder Skin/Wound: Yes CDI Contralateral Normal: Yes Testing: Yes AROM-Forward Elevation 0-180, Yes AROM-External Rotation at side 0-60, Yes PROM-External Rotation at side 0-60, Yes AROM-External Rotation at 90 0-60, Yes PROM-Forward Elevation 0-180, Yes PROM-External Rotation at 90 0-60 Internal Rotation: Tip of Scapula Assessment AND Plan Problems 1. Calcific tendinitis of right shoulder region M75.31 2. Degeneration of intervertebral disc at C4-C5 level M50.321 3. Cervical disc disorder at C5-C6 level with radiculopathy M50.122 Plan Assessment: Right shoulder pain and right calcific nidus, right shoulder multilevel degenerative disc disease at C4-5 C5-6 with radiculopathy. Plan: At this point time a recommendation would not be repeat subacromial injection. I feel the patient's continued right shoulder pain which is particular referral pain into the shoulder pattern needs to be delineated by an MRI. Patient shows multilevel degenerative disc disease he has symptoms at night with weakness and at work as a orthopedic vehicle glass technician. My recommendation prior to any form of injection again would be MRI of the neck. The patient is failed conservative measures to include a physician directed physical therapy program and prescription strength nonsteroidal anti-inflammatories. Patient will follow-up after MRI completed. Any major issues return. Patient will be referred to the orthopedic spine team upon completion of MRI. Orders Orders: Coding Level of Care Code Off vis,est,level 4 Diagnoses Calcific tendinitis of right shoulder region M75.31 Degeneration of intervertebral disc at C4-C5 level M50.321 Cervical disc disorder at C5-C6 level with radiculopathy M50.122 10/06/17 0852 <Electronically signed by Sunny Thomas DO> Date Sunny Thomas DO Cosignjethro Signature: Date (if applicable) CC: CERV SPINE 4 OR 5 Observed: 09/24/2017 Status: F Source: AWILDA SANTOS 9:00 AM [facility] REPOSITORY [facility] Imaging Services [address] [place], [place] [address] [address] Cerv Spine 4 or 5 Views MR#: [id number] Acct: [id number] Name: CHRIS MARTINEZ Rep #: [id number] : 1960 M 57 From: Selvin Rivers MD PCP: Alexander Garibay DO Status: REG CLI Study: Cerv Spine 4 or 5 Views Date of Exam: 09/24/17 Exam# [id number] Ordering Dr: Sunny Thomas DO STUDY: X-RAY - CERVICAL SPINE REASON FOR EXAM: Male, 57 years old. Neck and right shoulder pain. TECHNIQUE: 5 view(s) of the cervical spine were obtained. COMPARISON: None FINDINGS: There are degenerative changes of the anterior atlantoaxial articulation. Normal odontoid process. Normal cervical lordosis. There is multi-level endplate spondylosis. There is moderate degenerative disc disease and narrowing at C5-6, as well as narrowing to a lesser degree at C3-4. 1 degenerative arthroses of the cervical facet articulations. Mild retrolisthesis of C5 on C6. There is multi-level osseous foraminal stenosis, as prominent on the left at C3-4. There are atherosclerotic vascular calcifications of the carotid arteries. There is no demonstrated osseous destructive process or acute fracture of the cervical spine. RAD/Cerv Spine 4 or 5 Views IMPRESSION: 1. Degenerative changes of the cervical spine, as described. 2. Bilateral carotid artery calcifications incidentally noted. Electronically Signed: Dexter Rivers MD at 13:26 EDT , Service support , CC: Alexander Garibay DO; Sunny Thomas DO Reel Assembler: Signed UPPER EXT JOINT Observed: 08/20/2017 Status: F Source: AWILDA ONLY(ROUTINE) 4:08 PM [facility] REPOSITORY [facility] Imaging Services [address] [place] [address] Upper Ext Joint Only(Routine) MR#: [id number] Acct: [id number] Name: CHRIS MARTINEZ Rep #: [id number] : 1960 M 57 From: Braulio Villeda MD PCP: Alexander Garibay DO Status: REG CLI Study: Upper Ext Joint Only(Routine) Date of Exam: 08/20/17 Exam# [id number] Ordering Dr: Sunny Thomas DO STUDY: MRI RIGHT SHOULDER REASON FOR EXAM: Male, 57 years old. Pain. TECHNIQUE: Standardized fat and water weighted pulse sequences were obtained in all 3 orthogonal planes. COMPARISON: November 11, 2016 FINDINGS: There is tendon thickening with intratendinous decreased signal on all pulse sequences of the supraspinatus and infraspinatus and subscapularis tendons consistent with a calcific tendinitis, series 4 images 12/12 through . There is no full-thickness tear. Normal teres minor tendon. Normal supraspinatus muscle. Normal infraspinatus muscle. Normal subscapularis muscle. Normal teres minor muscle. Normal glenohumeral articulation. Normal humeral head and visualized proximal humerus. Normal biceps labral complex. Normal intracapsular long biceps tendon. Normal labrum. Normal capsulo- ligamentous complex. Normal rotator interval. 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 There is a Type I morphology (flat undersurface) acromion, with a neutral orientation. There is no subacromial-subdeltoid bursal fluid. Normal visualized coracohumeral and coracoacromial ligaments. Normal quadrilateral space. Normal axillary space. Normal deltoid muscle. Normal trapezius muscle. MRI/Upper Ext Joint Only(Routine) IMPRESSION: Calcific tendinopathy of the rotator cuff. No full thickness tear.. Acromioclavicular spurring with impingement. Electronically Signed: Braulio Villeda MD at 23:12 EDT , Service support , CC: Alexander Garibay DO; Sunny Thomas DO Reel Assembler: Signed ORTHOPEDIC VISIT Observed: 08/11/2017 Status: F Source: AWILDA REPORT 8:29 AM [facility] [address] [place] [address] OFFICE VISIT Date of Service: 08/06/17 MR#: [id number] Acct: [id number] Name: CHRIS MARTINEZ Rep #: [id number] : 1960 Provider: Sunny Thomas DO Age/Sex: 57/M Location: [facility] Status: Signed Intake Vital Signs08/06/17 Height 5 ft 11 in 08/06/17 Weight: 175 lb 08/06/17 Body Mass Index (BMI) 24.4 Intake Visit Reasons: RIGHT SHOULDER Is patient in pain?: Yes Pain scale (1-10): 1 Allergies No Known Allergies Allergy (Verified 08/06/17 08:07) Medications Aspirin [Aspirin, Baby] 81 mg PO DAILY@0800 09/15/14 [History Confirmed 08/06/17] Atorvastatin Calcium [Lipitor] 20 mg PO QHS 09/15/14 [History Confirmed 08/06/17] Fenofibrate [Tricor] 145 mg PO DAILY 09/15/14 [History Confirmed 08/06/17] Glimepiride [Amaryl] 2 mg PO BID 09/15/14 [History Confirmed 08/06/17] Metformin HCl [Glucophage] 500 mg PO 4X/DAY 09/15/14 [History Confirmed 08/06/17] Sitagliptin Phosphate [Januvia] 50 mg PO DAILY 09/15/14 [History Confirmed 08/06/17] [facility] Medical History Pneumonia (Acute) Skin cancer, basal cell (Acute) Diabetes (Chronic) Hyperlipidemia (Chronic) Surgical History VONNIE (Inactive) Ganglion cyst (Inactive) Inguinal hernia (Inactive) Family History Mother Diabetes Heart disease Social History Smoking Status: Former smoker HPI RIGHT SHOULDER: Details: CHRIS MARTINEZ is a 57 year old M here today for right shoulder. He complains of intermittent lateral shoulder pain. He denies radiation down his arm but complains of his neck hurting. He does have tingling/numbness in the shoulder/neck region. He denies clicking, popping or catching. Ortho Exam Right Shoulder Testing: Positive Hawkin's, Neer's and empty can Internal Rotation: L1 SHOULDER: Patient is alert and oriented 3 no acute distress. Appropriate eye contact and affect. Otherwise intact the C5 to the T2 distributions. He has positive pulses. Patient continues have a positive Joyner and Neer's to his right shoulder. Tender palpation across his biceps and has a positive speeds and Yergason's. He has weakness with supraspinatus testing in the abducted empty can position. However external rotation at the side is otherwise well-preserved. He has negative belly press negative liftoff. No obvious atrophy. Median radial ulnar nerves [place] is actually otherwise intact. Left Shoulder Testing: Yes Hawkin's, Yes Neer's, Yes AROM-Forward Elevation 0-180 Internal Rotation: T12 Assessment AND Plan Problems 1. Rotator cuff syndrome of right shoulder M75.101 2. Chronic right shoulder pain M25.511; G89.29 3. Impingement syndrome of right shoulder M75.41 Plan Assessment: Right shoulder impingement right shoulder cuff tear partial versus high-grade tendinopathy and right shoulder pain. Plan: At this point we talked talked about operative versus nonoperative management. Patient has a history of diabetes and does not tolerate the injections very well as a cause his sugars may be maintained elevated for extended period of time. I also be hesitant in terms of diabetic in terms of getting multiple injections. My recommendation at this point time is to do an MRI to evaluate for rotator cuff pathology and whether or not there is a surgical solution for her shoulder and will result in less morbidity that the corticosteroids may in terms of treatment of his symptoms. Patient continues have pain with overhead activities weakness again is failed this point time conservative measures to include injections and home exercise program which I provided from the [facility]. We will go ahead and order MRI of the right upper extremity. Follow-up after Orders Orders: Coding Level of Care Code Off vis,est,level 3 Diagnoses Rotator cuff syndrome of right shoulder M75.101 Chronic right shoulder pain M25.511; G89.29 Chronicity: chronic Impingement syndrome of right shoulder M75.41 08/11/17 0829 <Electronically signed by Sunny Thomas DO> Date Sunny Thomas DO Cosigner Signature: Date (if applicable) CC: ALLERGIES ALLERGIES DATE TYPE / CODE NAME / CODE REACTION SEVERITY SOURCE 05/07/2018 Drug No Known Unknown [facility] Allergy/416 Allergies/E17213 Hospital 077524(SNOM 0388(RXNORM) Repository ED CT) Drug NO KNOWN [facility] Class/99776 ALLERGIES [place] 1003(SNOMED Repository CT) ENCOUNTERS ENCOUNTERS ADMIT/DISCHARGE ACCOUNT ADMITTING ENCOUNTER LOCATION SOURCE NUMBER CLASS 06/09/2018 [id number] [facility] ing:LAB Repository 05/07/2018/05/07/20 [id number] Emergency [address] ing:ED Repository 03/13/2018 [id number] [facility] ing:LAB Repository 02/13/2018/02/18/20 [id number] Ambulatory [address] [place] Repository 02/06/2018 [id number] [facility] ing:EMPH Repository 01/13/2018 [id number] Ambulatory [facility] ing:LAB Repository 11/04/2017 [id number] [facility] ing:LAB Repository 10/13/2017 [id number] [facility] ing:MRI Repository 09/24/2017 [id number] [facility] ing:HPRAD Repository 09/24/2017/09/25/19 [id number] Ambulatory BMSBuilding:B [place] Repository 08/20/2017 [id number] [facility]:MRI Repository 08/06/2017/08/07/19 [id number] Ambulatory BMSBuilding:B [place] [address].[facility] Repository PAYERS PAYERS ENCOUNTER GUARANTOR PAYER SUBSCRIBER SOURCE 06/09/2018 CHRIS Bernard Primary Insurance:[facility] CHRIS Kaiser [id number] [facility] [id number] County Medical Center [address]Kir: Number: Repository [id number] (HP) Date:2468-07-60FA [address] [address], [place] [address]DP: CHECK WEBSITE 06/09/2018 Secondary NOT GIVENUNK [place] Insurance:SELF PAY [facility] Number: Effective Repository Date:2018-06-09 05/07/2018 CHRIS Bernard Primary CHRIS Kaiser [id number] Insurance:[facility] [id number] County Medical Center [address]Cth: Number: Repository [id number] (HP) Date:3159-87-72WM [address], [place] [address]YN: 05/07/2018 Secondary CHRIS Bernard [place] Insurance[facility] [id number] [facility] Number: Repository [id number] Date:0275-57-24PI [address] [address], [place] [address]GQ: CHECK WEBSITE 05/07/2018 Tertiary NOT GIVENUNK [place] Insurance:SELF PAY [facility] Number: Effective Repository Date:2018-05-07 03/13/2018 CHRIS Bernard Primary Insurance:[facility] CHRIS Kaiser [id number] [facility] [id number] County Medical Center [address]Ust: Number: Repository [id number] (HP) Date:6439-27-40PE [address] [address], [place] [address]MD: CHECK WEBSITE 03/13/2018 Secondary NOT GIVENUNK [place] Insurance:SELF PAY [facility] Number: Effective Repository Date:2018-03-13 02/06/2018 CHRIS Bernard Primary NOT GIVENUNK [place] [id number] Insurance:SELF PAY [facility] [address]Zth: Number: Effective Repository Date:2018-02-06 (HP) 01/13/2018 CHRIS Bernard Primary Insurance:[facility] CHRIS Beyoster [id number] [facility]ITAL[facility]LLYD[facility]: [facility] [id number] County Medical Center [address]Pvt: Number: Repository [id number] (HP) Date:4396-52-07SM [address] [address], [place] [address]RN: CHECK WEBSITE 01/13/2018 Secondary NOT GIVENUNK [place] Insurance:SELF PAY [facility] Number: Effective Repository Date:2018-01-13 11/04/2017 CHRIS Bernard Primary Insurance:[facility] CHRIS Bernard [place] [id number] [facility]ITALNALLYDOB: [facility] [id number] County Medical Center [address]Hge: Number: Repository [id number] (HP) Date:9309-30-83[address] [address], [place] [address]VJ: CHECK WEBSITE 11/04/2017 Secondary NOT GIVENUNK [place] Insurance:SELF PAY [facility] Number: Effective Repository Date:2017-11-04 10/13/2017 CHRIS Bernard Primary Insurance:[facility] CHRIS Kaiser [id number] [facility]: [facility] [id number] County Medical Center [address]Lqk: Number: Repository [id number] (HP) Date:5927-70-29[address] [address], [place] [address]ER: CHECK WEBSITE 10/13/2017 Secondary NOT GIVENUNK [place] Insurance:SELF PAY [facility] Number: Effective Repository Date:2017-10-02 09/24/2017 CHRIS Bernard Primary Insurance:[facility] CHRIS Kaiser [id number] [facility] MCNALLYDOB: [facility] [id number] County Medical Center [address]Tad: Number: Repository [id number] (HP) Date:9561-52-70[address] [address], [place] [address]CC: CHECK WEBSITE 09/24/2017 Secondary NOT GIVENUNK [place] Insurance:SELF PAY [facility] Number: Effective Repository Date:2017-09-24 09/24/2017 CHRIS Bernard Primary Insurance:[facility] CHRIS Bernard [place] [id number] [facility]: [facility] [id number] County Medical Center [address]Wmj: Number: Repository [id number] (HP) Date:7541-60-49[address] [address], [place] [address]FH: CHECK WEBSITE 09/24/2017 Secondary NOT GIVENUNK [place] Insurance:SELF PAY [facility] Number: Effective Repository Date:2017-09-24 08/20/2017 CHRIS Bernard Primary Insurance:[facility] CHRIS Kaiser [id number] [facility] MCNALLYDOB: [facility] [id number] County Medical Center [address]Qzq: Number: Repository [id number] (HP) Date:2650-85-09BN [address] [address]QQ[place], [place] [address]ZD: CHECK WEBSITE 08/20/2017 Secondary NOT GIVENUNK [place] Insurance:SELF PAY [facility] Number: Effective Repository Date:2017-08-14 08/06/2017 CHRIS Bernard Primary Insurance:[facility] CHRIS Kaiser [id number] [facility] MCNALLYDOB: [facility] [id number] County Medical Center [address]Kea: Number: Repository [id number] (HP) Date:2450-97-68WZ [address] [address]AAY[place], [place] [address]TK: CHECK WEBSITE 08/06/2017 Secondary NOT GIVENUNK [place] Insurance:SELF PAY [facility] Number: Effective Repository Date:2017-08-01
== END 2018-05-07 09:03 | disposition home or self-care (01) ==
PROVIDERS: Emergency Provider Emergency Medicine; Family Provider Family Medicine; PCP Family Medicine
DX: S61.210A Laceration without foreign body of right index finger without damage to nail, initial encounter (principal); W26.8XXA Contact with other sharp object(s), not elsewhere classified, initial encounter; Y93.89 Activity, other specified; Y99.0 Civilian activity done for income or pay; Z77.21 Contact with and (suspected) exposure to potentially hazardous body fluids; E11.9 Type 2 diabetes mellitus without complications; Z79.84 Long term (current) use of oral hypoglycemic drugs; Z79.82 Long term (current) use of aspirin; Z79.899 Other long term (current) drug therapy
CPT/HCPCS: 86703; 86803; 87340; 99281

== ENCOUNTER → 2018-06-09 06:52 | Outpatient (CLI) | payer OTHER, SELFPAY | PROVIDERS: Family Provider Family Medicine; PCP Family Medicine; Referring Provider Internal Medicine; Visit Provider Internal Medicine | DX: E11.9 Type 2 diabetes mellitus without complications (principal) | CPT/HCPCS: 36415; 83036 ==

== ENCOUNTER → 2018-10-16 06:40 | Outpatient (CLI) | payer OTHER, SELFPAY ==
[2018-10-16 07:25] LABS: Hematocrit 44.6 % (40-54); Hemoglobin 15.7 g/dl (13.0-16.5); Mean Corp Hgb Conc 35.2 g/gl (32-36); Mean Corpuscular Hgb 30.4 pg (27.0-32.0); Mean Corpuscular Volume 86.3 fL (80-94); Mean Platelet Vol. 10.5 fl (6.2-12.0); Platelet Count 227 K/mm3 (150-450); RBC Distribution Width CV 13.4 % (11.6-14.6); RBC Distribution Width SD 40.6 fl (35.1-43.9); Red Blood Count 5.17 M/mm3 (4.6-6.2); White Blood Count 5.9 K/mm3 (4.4-11.0)
[2018-10-16 07:29] LABS: Scan Indicated on CBC? Y/N NO
[2018-10-16 07:50] LABS: Microalbumin,Random Urine 5.7 mg/L (NO RANGE EST.)
[2018-10-16 08:21] LABS: ALB/GLOB Ratio 1.2 RATIO (0.9-2.4); AST(SGOT) 12 U/L (15-37); Alanine Aminotransfer ALT/SGPT 36 U/L (16-61); Albumin, Serum 3.8 g/dL (3.2-5.0); Alkaline Phosphatase 71 U/L (45-117); Anion Gap 6 (5-15); BUN 24 mg/dL (7-18); BUN/Creat Ratio 20.3 RATIO (10-20); Calcium,Total 8.2 mg/dL (8.5-10.1); Chloride 109 mmol/L (98-107); Cholesterol 161 mg/dL (200); Creatinine, Serum 1.18 mg/dL (0.70-1.30); EST Glomerular Filtration Rate 68 mL/min (>60); Est Glom Filt Rate - Afr Amer 82 mL/min (>60); Globulin 3.2 g/dL (2.2-4.2); Glucose 154 mg/dL (74-106); High Density Lipoprotein 34 mg/dL; Potassium 4.1 mmol/L (3.5-5.1); Sodium Level 141 mmol/L (136-145); Thyroid Stim Hormone (TSH) 3.59 uIU/mL (0.358-3.74); Triglycerides 777 mg/dL
[2018-10-16 09:17] LABS: Hemoglobin A1c 7.2 % (4.2-6.3)
[2018-10-18 08:20] LABS: C-Peptide 3.3 ng/mL (1.1-4.4)
== END ==
PROVIDERS: Family Provider Family Medicine; PCP Family Medicine; Referring Provider Internal Medicine; Visit Provider Internal Medicine
DX: E10.9 Type 1 diabetes mellitus without complications (principal)
CPT/HCPCS: 36415; 80053; 80061; 82043; 82570; 83036; 84443; 84681; 85027

== ENCOUNTER → 2019-03-29 06:32 | Outpatient (CLI) | payer OTHER, SELFPAY ==
[2019-03-29 08:01] LABS: Cholesterol 195 mg/dL (200); High Density Lipoprotein 35 mg/dL; Triglycerides 965 mg/dL
[2019-03-29 08:36] LABS: Hemoglobin A1c 8.8 % (4.2-6.3)
== END ==
PROVIDERS: Family Provider Family Medicine; PCP Family Medicine; Referring Provider Internal Medicine; Visit Provider Internal Medicine
DX: E10.9 Type 1 diabetes mellitus without complications (principal); Z79.4 Long term (current) use of insulin
CPT/HCPCS: 36415; 80061; 83036

== ENCOUNTER → 2019-08-09 06:49 | Outpatient (CLI) | payer OTHER, SELFPAY ==
[2019-08-09 09:49] LABS: Hemoglobin A1c 8.1 % (4.2-6.3)
== END ==
PROVIDERS: PCP Family Medicine; Referring Provider Internal Medicine; Visit Provider Internal Medicine
DX: E11.9 Type 2 diabetes mellitus without complications (principal); E78.2 Mixed hyperlipidemia
CPT/HCPCS: 36415; 83036

== ENCOUNTER → 2020-05-10 06:49 | Outpatient (CLI) | payer OTHER, SELFPAY ==
[2020-05-10 08:03] LABS: Hemoglobin A1c 9.5 % (3.8-5.6)
[2020-05-10 08:09] LABS: Cholesterol 222 mg/dL (200); High Density Lipoprotein 40 mg/dL; Triglycerides 679 mg/dL
== END ==
PROVIDERS: PCP Family Medicine; Referring Provider Internal Medicine; Visit Provider Internal Medicine
DX: E11.9 Type 2 diabetes mellitus without complications (principal)
CPT/HCPCS: 36415; 80061; 83036

== ENCOUNTER → 2020-06-26 08:45 | Outpatient (CLI) | payer OTHER, SELFPAY ==
--- NOTE | 2020-06-26 08:47 | RAD_ITS ---
STUDY: X-RAY - LEFT HAND, ATTENTION FOURTH FINGER REASON FOR EXAM: Male, 60 years old. Left ring finger injury 2 days ago -- tip of finger pain and bruising TECHNIQUE: 3 view(s) of the finger were obtained. COMPARISON: None. FINDINGS: Normal metacarpal head. Normal metacarpophalangeal joint. Normal proximal phalanx. Normal middle phalanx. Nondisplaced comminuted fracture of the distal phalanx of the fourth digit. Normal proximal interphalangeal joint. Normal distal interphalangeal joint. Soft tissue swelling. RAD/Finger(s) Min 2 Views IMPRESSION: Nondisplaced comminuted fracture of the distal phalanx of the fourth digit with overlying soft tissue swelling. Electronically Signed: Nilson Jimenez MD at 9:25 EST , Service support ,
== END ==
PROVIDERS: PCP Family Medicine; Referring Provider Physician Assistant; Visit Provider Physician Assistant
DX: S62.665A Nondisplaced fracture of distal phalanx of left ring finger, initial encounter for closed fracture (principal); X58.XXXA Exposure to other specified factors, initial encounter
CPT/HCPCS: 73140

== ENCOUNTER → 2020-07-14 13:55 | Outpatient (CLI) | payer OTHER, SELFPAY ==
--- NOTE | 2020-07-14 13:56 | RAD_ITS ---
STUDY: X-RAY - LEFT HAND, ATTENTION FOURTH FINGER REASON FOR EXAM: Follow-up of fracture of the fourth distal phalanx. TECHNIQUE: 3 view(s) of the finger were obtained. COMPARISON: Radiographs 06/26/2020. FINDINGS: Normal metacarpal head. Normal metacarpophalangeal joint. Normal proximal phalanx. Normal middle phalanx. There is no interval change of the nondisplaced comminuted fracture of the distal phalanx. Normal proximal interphalangeal joint. Normal distal interphalangeal joint. There is an overlying splint. RAD/Finger(s) Min 2 Views IMPRESSION: Nondisplaced fracture of the distal phalanx. Electronically Signed: Alexander Gutierrez MD at 14:39 EST Tel , Service support ,
== END ==
PROVIDERS: PCP Family Medicine; Referring Provider Physician Assistant; Visit Provider Physician Assistant
DX: S62.665A Nondisplaced fracture of distal phalanx of left ring finger, initial encounter for closed fracture (principal)
CPT/HCPCS: 73140

== ENCOUNTER → 2020-08-03 10:50 | Outpatient (CLI) | payer OTHER, SELFPAY ==
--- NOTE | 2020-08-03 10:53 | RAD_ITS ---
STUDY: X-RAY - LEFT HAND, ATTENTION RING FINGER REASON FOR EXAM: Follow-up left ring finger fracture from injury 6 weeks ago, pain. TECHNIQUE: 3 view(s) of the finger were obtained. COMPARISON: Radiographs 07/14/2020. FINDINGS: Normal metacarpal head. Normal metacarpophalangeal joint. Normal proximal phalanx. Normal middle phalanx. There is no interval change of the nondisplaced comminuted fracture of the distal phalanx. Normal proximal interphalangeal joint. Normal distal interphalangeal joint. There is soft tissue swelling. RAD/Finger(s) Min 2 Views IMPRESSION: No significant change of distal phalangeal fracture. Electronically Signed: Alexander Gutierrez MD at 11:21 EST Tel , Service support ,
== END ==
PROVIDERS: PCP Family Medicine; Referring Provider Orthopaedic Surgery; Visit Provider Orthopaedic Surgery
DX: S62.639A Displaced fracture of distal phalanx of unspecified finger, initial encounter for closed fracture (principal)
CPT/HCPCS: 73140

== ENCOUNTER 2020-08-09 08:30 | Outpatient (RCR) | payer OTHER, SELFPAY ==
[2020-06-27 09:10] VITALS: BMI 24.8
--- NOTE | 2020-07-21 13:58 | HP.OTEVAL ---
Patient's Visit Information CHRIS BERNABE Jr. is a 60 year old M, referred to Occupational Therapy by Dr. Jolie Saini DO, with a diagnosis of right RF tuft fx. Date of Evaluation: 07/04/20 Occupational Therapist: Daily Oconnor, GEETA/Heather, CHT - Subjective This 60 year old male was seen for OT eval with dx of a a left ring finger tuft fx. Pt states while moving some wts he smashed his finger on 06/26/20. Pt is in need of custom orthosis to provide support and protection while fx is healing. pt reports he is currently off work for about 6 weeks. therapist expressed agreement due to type of fx and his job requirements - ROM ROM Comments: right RF MCP and PIP moving well-. right RF DIP placed in orthosis to prevent DIP motion to allow for distal phalanx to heal - Quick DASH-Disab of Arm,Shoulder& Hand Quick DASH Score: 45.0000 - Goals Goal:: pt will demo understanding of orthosis use/donning/doffing IND by end of 2nd visit. pt will demo understanding of returning for orthosis adj as needed to increase use and comfort if issues with skin irritation arises. - Rehabilitation General Assessment: Pt demo need for skilled OT services to jo ann. custom orthosis to provide protection and support to right RF distal pahlanx while ex is healing, giving PIP and MP the ability to be free for full motion. Today therapist made Adj. to the orthosis as swelling has reduced from initial jo ann. on 06/27/20. Therapist use of tape to keep orthosis on pt demo understanding and use of orthosis. - Anticipated Interventions Orthoses, Home Program - Visit Plan TEXT: Thank you for the opportunity to evaluate your patient. For Medicare and Medicare HMO plans, please review the plan of care and approve it. It will need to be FAXED BACK to us at [phone] for Medicare purposes. Please let me know if there are questions or concerns regarding this plan of care. Physician Signature: Date:
--- NOTE | 2020-08-09 08:49 | HP.OTDCSUM ---
It has been my pleasure to treat CHRIS BERNABE . under orders from Dr. Jolie Saini DO, for the diagnosis of right RF tuft fx for a total of 2 visit(s). Please see the following information for a summary of their discharge status. % Improvement: 80 Objective/Function: pt demo with good ROM of left RF. PIP at 0/110* flex. and DIP 0/55*. pt demo good functional composite fist. right 90#. left 85# Patient Goals: Return to Work Goal:: pt will demo understanding of orthosis use/donning/doffing IND by end of 2nd visit. pt will demo understanding of returning for orthosis adj as needed to increase use and comfort if issues with skin irritation arises. Plan: D/c Discharge Comments: pt has made good gains in his ROM and use of left hand for ADls and IADls. pt feels he is ready to return to work. pt demo good functional ROM and strength to return at this time. Therapist advised pt that it is possible to have some pain up to a year after injury. pt demo understanding and agree to return to DrGayle if pain increases or swelling occures. pt d/c at this time. If there are questions or concerns regarding this patient's occupational therapy, please fell free to call me at [phone]. Thank you for the referral of this patient. Sincerely, Daily Oconnor, OTR/L, CHT
== END 2020-08-09 13:55 | disposition home or self-care (01) ==
LOC: OT 08:30
PROVIDERS: PCP Family Medicine; Referring Provider Orthopaedic Surgery; Visit Provider Orthopaedic Surgery
DX: S62.605D Fracture of unspecified phalanx of left ring finger, subsequent encounter for fracture with routine healing (principal)
CPT/HCPCS: 97165; 97530; 97760

== ENCOUNTER → 2020-08-21 07:10 | Outpatient (CLI) | payer OTHER, SELFPAY ==
[2020-08-21 08:07] LABS: Microalbumin,Random Urine 9.3 mg/L (NO RANGE EST.); Microalbumin:Creatinine Ratio 4.4 mg/g CRE (<30 mg/g CRE); Vitamin D,25 Hydroxy 33.8 ng/mL
[2020-08-21 08:09] LABS: ALB/GLOB Ratio 1.3 RATIO (0.9-2.4); AST(SGOT) 7 U/L (15-37); Alanine Aminotransfer ALT/SGPT 29 U/L (16-61); Albumin, Serum 4.2 g/dL (3.2-5.0); Alkaline Phosphatase 47 U/L (45-117); Anion Gap 4 (5-15); BUN 23 mg/dL (7-18); BUN/Creat Ratio 17.7 RATIO (10-20); Calcium,Total 8.5 mg/dL (8.5-10.1); Chloride 103 mmol/L (98-107); Cholesterol 109 mg/dL (200); EST Glomerular Filtration Rate 60 mL/min (>60); Est Glom Filt Rate - Afr Amer 73 mL/min (>60); Globulin 3.2 g/dL (2.2-4.2); Glucose 73 mg/dL (74-106); High Density Lipoprotein 40 mg/dL; Protein, Total 7.4 g/dL (6.4-8.2); Sodium Level 137 mmol/L (136-145); Thyroid Stim Hormone (TSH) 5.11 uIU/mL (0.358-3.74); Triglycerides 163 mg/dL; Very Low Density Lipoprotein 33 mg/dL (5-40)
== END ==
PROVIDERS: PCP Family Medicine; Referring Provider Internal Medicine Endocrinology, Diabetes & Metabolism; Visit Provider Internal Medicine Endocrinology, Diabetes & Metabolism
DX: E11.9 Type 2 diabetes mellitus without complications (principal); E78.2 Mixed hyperlipidemia; E55.9 Vitamin D deficiency, unspecified
CPT/HCPCS: 36415; 80053; 80061; 82043; 82306; 82570; 83036; 84443

== ENCOUNTER → 2021-02-23 06:30 | Outpatient (CLI) | payer OTHER, SELFPAY ==
[2021-02-23 07:57] LABS: Hemoglobin A1c 7.2 % (3.8-5.6)
[2021-02-23 08:31] LABS: Cholesterol 166 mg/dL (200); High Density Lipoprotein 35 mg/dL; Thyroid Stim Hormone (TSH) 3.84 uIU/mL (0.358-3.74); Triglycerides 429 mg/dL
[2021-02-24 16:17] LABS: Thyroid Peroxidase AB 8 IU/mL (0-34)
== END ==
PROVIDERS: Visit Provider Internal Medicine Endocrinology, Diabetes & Metabolism
DX: E78.2 Mixed hyperlipidemia (principal); E11.9 Type 2 diabetes mellitus without complications; R94.6 Abnormal results of thyroid function studies
CPT/HCPCS: 36415; 80061; 83036; 84443; 86376

== ENCOUNTER → 2021-03-20 09:05 | Outpatient (CLI) | payer OTHER, SELFPAY ==
--- NOTE | 2021-03-20 09:07 | RAD_ITS ---
STUDY: X-RAY - CERVICAL SPINE REASON FOR EXAM: Male, 61 years old. Cervical strain TECHNIQUE: 3 view(s) of the cervical spine were obtained. COMPARISON: Comparison is made with prior study of 09/24/2017. FINDINGS: Normal anterior atlantoaxial articulation. Normal odontoid process. There is straightening of the normal cervical lordosis. There is multi-level endplate spondylosis. There is multi-level degenerative disc disease with multilevel disc space narrowing. Facet joint osteoarthritis. There are atherosclerotic vascular calcifications of the carotid arteries. RAD/Cerv Spine 2 or 3 Views IMPRESSION: Loss of the normal cervical lordosis. Multilevel spondylosis and disc space narrowing. Calcification of the carotid bifurcations bilaterally. Electronically Signed: Nilson Jimenez MD at 10:26 EDT , Service support ,
== END ==
PROVIDERS: Referring Provider Physician Assistant Surgical; Visit Provider Physician Assistant Surgical
DX: S16.1XXA Strain of muscle, fascia and tendon at neck level, initial encounter (principal); X58.XXXA Exposure to other specified factors, initial encounter; M47.812 Spondylosis without myelopathy or radiculopathy, cervical region; M48.02 Spinal stenosis, cervical region
CPT/HCPCS: 72040

== ENCOUNTER → 2021-05-22 10:17 | Outpatient (CLI) | payer OTHER, SELFPAY ==
--- NOTE | 2021-05-22 10:18 | MRI_ITS ---
STUDY: MRI CERVICAL SPINE WITHOUT CONTRAST REASON FOR EXAM: Male, 61 years old. Neck pain and right arm pain. TECHNIQUE: Standardized fat and water weighted pulse sequences were obtained in the sagittal and axial planes. COMPARISON: MRI cervical spine without contrast 10/13/2017. FINDINGS: Normal foramen magnum and brainstem-cervical cord junction. Normal craniovertebral junction. Normal anterior atlantoaxial articulation. Normal odontoid process. Mild straightening of the upper C-spine curvature is unchanged. Normal vertebral bodies and posterior osseous elements. C2-3: Normal endplates. Normal disc height, signal and morphology. Normal central canal and intervertebral neural foramina. C3-4: Normal endplates. Normal disc height, signal and morphology. Normal central canal and intervertebral neural foramina. C4-5: Normal endplates. Normal disc height, signal and morphology. Normal central canal and intervertebral neural foramina. C5-6: Normal endplates. Anterior marginal spurs. Normal central canal. Moderately pronounced stenosis of the right intervertebral neural foramen and moderate stenosis of the left intervertebral neural foramen are unchanged. C6-7: Normal endplates. Normal disc height, signal and morphology. Normal central canal and intervertebral neural foramina. C7-T1: Normal endplates. Normal disc height, signal and morphology. Normal central canal and intervertebral neural foramina. T1-T2, T2-T3, T3-T4, T4-T5 and T5-T6: (Sagittal only). Normal endplates. Normal disc height and morphology. No ventral extradural defect. Normal central canal and intervertebral neural foramina. Normal cervical cord. Normal upper thoracic spinal cord. Normal included portions the brainstem and cerebellum. Normal visualized soft tissue structures. MRI/Spine Cervical (Routine) IMPRESSION: 1. No MRI evidence of cervical extruded disc fragment. 2. Moderately pronounced stenosis of the right C5-C6 intervertebral neural foramen and moderate stenosis of the left C5-C6 intervertebral neural foramen secondary to osteophytes arising from the uncovertebral joints. 3. No interval change when compared to 10/13/2017. Electronically Signed: Hany Vee MD at 16:04 EST , Service support ,
== END ==
PROVIDERS: Referring Provider Orthopaedic Surgery; Visit Provider Orthopaedic Surgery
DX: M54.12 Radiculopathy, cervical region (principal); M48.02 Spinal stenosis, cervical region; S16.1XXA Strain of muscle, fascia and tendon at neck level, initial encounter; X58.XXXA Exposure to other specified factors, initial encounter
CPT/HCPCS: 72141

== ENCOUNTER 2021-05-31 14:35 | Outpatient (CLI) | payer OTHER, SELFPAY ==
[2021-05-31] MEDS: 0.9% Saline Lock 10 ML Syringe IV (14:52)
[2021-05-31 14:57] VITALS: BP 127/89; PULSE 104; RESP 16; TEMP 36.9; O2SAT 98; BMI 25.7
[2021-05-31 15:21] VITALS: BP 129/89; PULSE 94; RESP 16; TEMP 37.1; O2SAT 97
[2021-05-31 16:11] VITALS: BP 123/84; PULSE 91; RESP 16; TEMP 36.9; O2SAT 99
== END 2021-05-31 23:59 | disposition home or self-care (01) ==
LOC: MS3OUT 14:35 → MS3 14:36
PROVIDERS: Referring Provider Nurse Practitioner Adult Health; Visit Provider Nurse Practitioner Adult Health
DX: Z23 Encounter for immunization (principal); E11.9 Type 2 diabetes mellitus without complications; U07.1 COVID-19
CPT/HCPCS: J7050; M0243; A4216; Q0244

== ENCOUNTER 2021-07-30 11:37 | Outpatient (CLI) | payer OTHER, SELFPAY ==
--- NOTE | 2021-07-30 11:41 | RAD_ITS ---
STUDY: X-RAY - RIGHT SHOULDER REASON FOR EXAM: Male, 61 years old. Shoulder pain with limited range of motion. TECHNIQUE: 4 view(s) of the shoulder. COMPARISON: The 2016. FINDINGS: Mild arthrosis of the glenohumeral joint unchanged. Mild arthrosis of the AC joint is unchanged. Normal acromion. Normal humeral head and visualized proximal humerus. Stable calcification adjacent to the humeral head compatible with calcific tendinitis and calcific bursitis. Normal visualized pulmonary apex. RAD/Shoulder min 2 Views IMPRESSION: Stable osteoarthritic changes. Stable findings of calcific bursitis/calcific tendinitis. No acute finding. Electronically Signed: Ilya Reina MD at 12:39 EST ,
== END 2021-07-30 23:59 | disposition home or self-care (01) ==
PROVIDERS: Referring Provider Orthopaedic Surgery; Visit Provider Orthopaedic Surgery
DX: M19.011 Primary osteoarthritis, right shoulder (principal); M75.51 Bursitis of right shoulder; M75.31 Calcific tendinitis of right shoulder
CPT/HCPCS: 73030

== ENCOUNTER 2021-08-08 17:05 | Outpatient (CLI) | payer OTHER, SELFPAY ==
--- NOTE | 2021-08-08 17:06 | MRI_ITS ---
EXAM: MR RIGHT UPPER EXTREMITY WITHOUT INTRAVENOUS CONTRAST, SHOULDER CLINICAL INDICATION: pain TECHNIQUE: Multiplanar and multisequence MR images of the right shoulder without intravenous contrast. This report was created using Teralyn[employer] report generation technology. COMPARISON: None. FINDINGS: TENDONS: SUPRASPINATUS: Moderate supraspinatus tendinosis without tendon tearing. INFRASPINATUS: Intact infraspinatus tendons and remaining rotator cuff tendons. SUBSCAPULARIS: Unremarkable. Intact. TERES MINOR: Unremarkable. Intact. BICEPS BRACHII, LONG HEAD: Intact long head of biceps tendon which is normal in position. The extra-articular biceps tendon is in the bicipital groove. LIGAMENTS: GLENOHUMERAL: Unremarkable. Intact. MUSCLES: No muscle atrophy. FLUID: No significant fluid within the subacromial/subdeltoid bursa. No joint effusion. CARTILAGE: Unremarkable. Articular cartilage intact. GLENOID LABRUM: Intact labral structures. BONES/JOINTS: Severe hypertrophic degenerative changes at the acromioclavicular joint causing mass effect on the musculotendinous junction of the supraspinatus. Type I acromion with flat undersurface. No subacromial enthesophyte. No os acromiale. No fracture. No abnormal bone marrow signal. OTHER SOFT TISSUES: Unremarkable. No rotator interval edema. OTHER FINDINGS: No concerning marrow signal alterations. No other significant pathology. MRI/Upper Ext Joint Only(Routine) IMPRESSION: 1. Severe hypertrophic degenerative changes at the acromioclavicular joint causing mass effect on the musculotendinous junction of the supraspinatus. 2. Moderate supraspinatus tendinosis without significant tendon tearing. Electronically Signed: Samson Gasca MD at 4:30 EDT ,
== END 2021-08-08 23:59 | disposition home or self-care (01) ==
LOC: MRI 17:06
PROVIDERS: Visit Provider Orthopaedic Surgery
DX: M75.101 Unspecified rotator cuff tear or rupture of right shoulder, not specified as traumatic (principal); M19.011 Primary osteoarthritis, right shoulder; M67.813 Other specified disorders of tendon, right shoulder
CPT/HCPCS: 73221

== ENCOUNTER 2021-08-25 07:48 | Outpatient (CLI) | payer OTHER, SELFPAY ==
[2021-08-25 09:00] LABS: ALB/GLOB Ratio 1.1 RATIO (0.9-2.4); AST(SGOT) 9 U/L (15-37); Alanine Aminotransfer ALT/SGPT 31 U/L (16-61); Albumin, Serum 3.7 g/dL (3.2-5.0); Alkaline Phosphatase 66 U/L (45-117); Anion Gap 5 (5-15); BUN 20 mg/dL (7-18); BUN/Creat Ratio 17.1 RATIO (10-20); Calcium,Total 8.5 mg/dL (8.5-10.1); Chloride 106 mmol/L (98-107); Cholesterol 190 mg/dL (200); Creatinine, Serum 1.17 mg/dL (0.70-1.30); EST Glomerular Filtration Rate 68 mL/min (>60); Est Glom Filt Rate - Afr Amer 82 mL/min (>60); Globulin 3.3 g/dL (2.2-4.2); Glucose 119 mg/dL (74-106); High Density Lipoprotein 39 mg/dL; Potassium 4.6 mmol/L (3.5-5.1); Sodium Level 140 mmol/L (136-145); Thyroid Stim Hormone (TSH) 2.55 uIU/mL (0.358-3.74); Triglycerides 407 mg/dL
[2021-08-25 09:10] LABS: Hemoglobin A1c 7.4 % (3.8-5.6)
[2021-08-25 09:56] LABS: Microalbumin,Random Urine 13.7 mg/L (NO RANGE EST.); Microalbumin:Creatinine Ratio 9.6 mg/g CRE (<30 mg/g CRE)
== END 2021-08-25 23:59 | disposition home or self-care (01) ==
LOC: LAB 07:50
PROVIDERS: Referring Provider Internal Medicine Endocrinology, Diabetes & Metabolism; Visit Provider Internal Medicine Endocrinology, Diabetes & Metabolism
DX: R94.6 Abnormal results of thyroid function studies (principal); E11.65 Type 2 diabetes mellitus with hyperglycemia; E78.2 Mixed hyperlipidemia
CPT/HCPCS: 36415; 80053; 80061; 82043; 82570; 83036; 84443

== ENCOUNTER 2022-03-27 16:37 | Outpatient (CLI) | payer OTHER, SELFPAY ==
--- NOTE | 2022-03-27 | IMM_PTH ---
PATIENT: CHRIS BERNABE Jr. LOC: [facility] U#:[id number] AGE/SX: 62/M ROOM: RE03/27/[address]: Dr. London Mcintosh MD : 1960 BED: DIS: 03/27/2022 SPEC #: [id number] RECD: 03/29/22 13:30 STATUS: LAYLA DAREK #: [id number] JOSUE: 03/27/22 00:[address]: London Mcintosh DEPT: IMMUNOHISTOCHEMISTRY RECD BY: Nuvia Zamarripa Tissues: Skin of upper extremity, NOS Procedures: SMA (add) CK5-6 (add) P53 (add) Vimentin (add) Pankeratin (initial) Pankeratin (add) MELAN-A (add) P40 (add) S-100 (add) PHYSICIAN & INSTITUTION [place] [id number] SPECIMEN INFORMATION: Tissue Source: Left shoulder lesion Clinical Info: Left shoulder lesion Specimen Number: [id number] #2-4 CPT code: 03699, 23510 x23 METHODOLOGY: Deparaffinized sections of prefer/formalin-fixed tissue or PAP/DQ stained slides are incubated with monoclonal/polyclonal antibodies/oligonucleotide probes. Localization is made via biotin free immunoperoxidase method. Appropriate controls are performed and reacted as expected. Results on target cell population are indicated in the following table: RESULTS: ANTIBODY / CLONE RESULT Block 2 AE1-3 (AE1/AE3/PCK26) negative Vimentin (V9) positive Actin (1A4) negative Melan A (A103) negative S-100 (4C4.9) negative CK5-6 (D5 & 1684) negative P40 (BC28) negative P53 (DO-7) negative Block 3 AE1-3 (AE1/AE3/PCK26) negative Vimentin (V9) positive Actin (1A4) negative Melan A (A103) negative S-100 (4C4.9) negative CK5-6 (D5 & 1684) negative P40 (BC28) negative P53 (DO-7) negative Block 4 AE1-3 (AE1/AE3/PCK26) negative Vimentin (V9) negative Actin (1A4) negative Melan A (A103) negative S-100 (4C4.9) negative CK5-6 (D5 & 1684) negative P40 (BC28) negative P53 (DO-7) negative These tests were developed and their performance characteristics determined by [facility]. They may not have been cleared or approved by the U.S. Food and Drug Administration. The FDA has determined that such clearance or approval is not necessary. The above immunohistochemical/dualISH markers are ordered and reviewed by the Pathologist. INTERPRETATION: Left shoulder lesion, excision: Dermal fibrosis consistent with cicatrix. See comment. AM:ezra 04/01/2022 Comment: Clinical correlation is necessary.
--- NOTE | 2022-03-27 13:05 | LES_PTH ---
PATIENT: CHRIS BERNABE Jr. LOC[facility]#:[id number] AGE/SX: 62/M ROOM: RE03/27/[address]: Dr. London Mcintosh MD : 1960 BED: DIS: 03/27/2022 SPEC #: [id number] RECD: 03/28/22 08:51 STATUS: LAYLA RIVERABraeden #: [id number] JOSUE: 03/27/22 13:[address]: London Mcintosh DEPT: SURGICAL PATHOLOGY RECD BY: Lucie Carr Tissues: Skin of upper extremity, NOS Procedures: Surgery Specimen Level IV HEADER OPERATION: Excision of left shoulder lesion PRE-OP DIAGNOSIS: Left shoulder lesion TISSUE SUBMITTED: Left shoulder lesion with suture in posterior aspect MICROSCOPIC DIAGNOSIS Skin lesion of left shoulder, excision: Dermal fibrosis consistent with cicatrix. No evidence of malignancy. See comment. AM:ezra 03/29/2022 COMMENT Immunohistochemistry ([id number]) supports the above diagnosis. MICROSCOPIC DESCRIPTION Slides are reviewed. GROSS DESCRIPTION Received in fixative is one container labeled with the patient's name and designated left shoulder skin lesion. The specimen consists of an ellipse of light schwarz excised skin measuring 3.6 x 2.1 cm and excised to a depth of 0.8 cm. The cutaneous surface displays a shallow pink-schwarz lesion measuring 1.2 x 1 cm. A suture is present at one tip. This tip is inked in yellow ink. The opposite tip is inked in blue ink. The remainder of the specimen is inked in black ink. The specimen is serially sectioned and totally submitted as follows: 1 ? tips, 2-4 ? remainder of the specimen. / AM:ezra 03/28/2022 TC:4 CPT: 36584
== END 2022-03-27 23:59 | disposition home or self-care (01) ==
LOC: LABSPEC 16:37
PROVIDERS: Visit Provider Surgery
DX: D03.62 Melanoma in situ of left upper limb, including shoulder (principal)
CPT/HCPCS: 88305; 88341; 88342

== ENCOUNTER → 2022-05-15 | Outpatient (CLI) | payer OTHER, SELFPAY ==
--- NOTE | 2022-05-15 14:49 | RAD_ITS ---
STUDY: XR Shoulder Min 2 Views REASON FOR EXAM: Male, 62 years old. Left Shoulder pain TECHNIQUE: XR Shoulder Min 2 Views LEFT COMPARISON: None. FINDINGS: Normal glenohumeral articulation. Normal acromioclavicular joint. Normal acromion. Normal humeral head and visualized proximal humerus. There is periarticular soft tissue calcification consistent with a calcific tendinitis. Normal visualized pulmonary apex. RAD/Shoulder min 2 Views IMPRESSION: There is periarticular soft tissue calcification consistent with a calcific tendinitis. Electronically Signed: Gorge Myrick MD at 17:11 EST ,
== END | disposition home or self-care (01) ==
LOC: MTRAD 14:48
PROVIDERS: PCP Internal Medicine; Referring Provider Internal Medicine; Visit Provider Internal Medicine
DX: M25.512 Pain in left shoulder (principal)
CPT/HCPCS: 73030

== ENCOUNTER 2022-07-18 18:00 | Outpatient (RCR) | payer OTHER, SELFPAY ==
--- NOTE | 2022-05-30 18:03 | HP.PTEVAL ---
Patient's Visit Information CHRIS BERNABE Jr. is a 62 year old M referred to Physical Therapy by Dr. Violetta Berg MD with a diagnosis of L shoulder pain. Date of Evaluation: 05/30/22 Physical Therapist: Gorge Cohen, PT, ATC - Visit Plan Frequency: 2-3x /Week Duration: 4-6 Weeks Plan: L shoulder rot cuff strengthening, scap stab ex's, UBE, and HEP - Subjective Pt reports he subluxed his L shoulder approximately 29 years ago. Pt reports he healed from that through exercise and activity. However, 2 years ago, he quit exercising and the pain has returned. Pt notes his pain is at its worst when he attempts to lift and externally roate his L UE. Pt also notes he has pain if he lifts his arm and drops it quickly. Pt reports he is R hand dominant. Pt notes he has had an xray of his L shoulder which revealed some OA. Pt reports he has some difficulty with his work requirements secondary to pain. Pt also notes difficulty with sleep at this time secondary to pain. 2/10 pain at rest, 8/10 pain at worst. L shoulder is pop on occasion and catch. No locking up or giving out. - Pain L shoulder Pain Intensity (Out of 10): 2 Pain Intensity Range: 8 - Objective Neuro: B LE sensation is WNL to light touch. B bicipital reflex= 2/3. Palpation: Pt is sore on the lateral aspect of the L shoulder. No obvious deformity at this time. ROM: R shoulder flex= 150, abd= 160, IR= , ER= 60; L shoulder flex= 60, abd= 140, IR= WNL, ER= 40. MMT: R shoulder flex= 16, abd= 24, IR= 23, ER= 22 #F; L shoulder flex= 5, abd= 5, IR= 21, ER= 21 #F. Special Tests: Pos empty can, pos HK impingement, pos apprehension test - Balance/Special Test Scores Quick DASH Score: 25.0000 - Goals Goal 1:: Decrease L shoulder pain x 50% to aid with sleep Goal Time Frame: 4-6 Weeks Goal 2:: Increase L shoulder flex and abd ROM x 30 degrees to aid with overhead activity Goal Time Frame: 4-6 Weeks Goal 3:: Increase L shoulder strength x 10 #F with flexion and abduction to aid with IADL's Goal Time Frame: 4-6 Weeks Goal 4:: I with HEP Goal Time Frame: 4-6 Weeks - Rehabilitation Potential Physical Therapy Diagnosis: Pt has L shoulder pain, weakness, and limited ROM secondary to L shoulder impingement syndrome Rehabilitation Potential: Good - Anticipated Interventions Patient/Client Instruction: Educate patient on: Condition, Plan of Care For the Purpose of:: To improve self management Therapeutic Exercise to Include: Strength training, Endurance training, Flexibilty training, Active ROM, Scapular Strength/Stabilization For the Purpose of:: To decrease pain, To increase ROM, To improve muscle performance and motor function Cryotherapy (ice pack, ice massage): Yes For the Purpose of:: To decrease pain Thank you for the opportunity to evaluate your patient. For Medicare and Medicare HMO plans, please review the plan of care and approve it. It will need to be FAXED BACK to us at [phone] for Medicare purposes. For Medicare only, by signing this I certify the plan of care. Please let me know if there are questions or concerns regarding this plan of care. Physician Signature: Date:
--- NOTE | 2022-07-18 18:41 | HP.PTDCSUM ---
It has been my pleasure to treat CHRIS BERNABE Jr. referred by Dr. Violetta Berg MD, with the diagnosis of L shoulder pain for a total of 8 visit(s). Discharge Date: Please see the following information for a summary of their discharge status. Subjective: My pain came back a couple of days ago. I am so sore today L shoulder Pain Intensity (Out of 10): 7 % Improvement: 25 Objective/Function: L shoulder pain ranges from 0-7/10. L shoulder ROM: flex= 145, abd= 95. L shoulder MMT: flex= 4.5, abd= 4.7 #F. I with HEP Goal 1:: Decrease L shoulder pain x 50% to aid with sleep Goal Progress: Not Progressing Goal 2:: Increase L shoulder flex and abd ROM x 30 degrees to aid with overhead activity Goal Progress: Progressing Goal 3:: Increase L shoulder strength x 10 #F with flexion and abduction to aid with IADL's Goal Progress: Not Progressing Goal 4:: I with HEP Goal Progress: Goal Met Plan: Discontinue to HEP If there are questions or concerns regarding this patient's physical therapy, please feel free to call me at [phone]. Thank you for the referral of this patient. Sincerely, Gorge Cohen, PT, ATC Balance/Gait/Functional tests - Balance/Special Test Scores Quick DASH Score: 38.6350
== END 2022-07-18 19:00 | disposition home or self-care (01) ==
LOC: PT 18:00
PROVIDERS: PCP Internal Medicine; Referring Provider Internal Medicine; Visit Provider Internal Medicine
DX: M75.32 Calcific tendinitis of left shoulder
CPT/HCPCS: 97110; 97161; 97164

== ENCOUNTER → 2022-09-24 | Outpatient (CLI) | payer OTHER, SELFPAY | END | disposition home or self-care (01) | LOC: PSN 13:49 | PROVIDERS: PCP Internal Medicine; Referring Provider Internal Medicine; Visit Provider Internal Medicine | DX: I10 Essential (primary) hypertension (principal) | CPT/HCPCS: 93005 ==

== ENCOUNTER → 2022-09-27 | Outpatient (CLI) | payer OTHER, SELFPAY ==
[2022-09-27 07:58] LABS: Microalbumin,Random Urine 7.2 mg/L (NO RANGE EST.); Microalbumin:Creatinine Ratio 5.8 mg/g CRE (<30 mg/g CRE)
[2022-09-27 08:21] LABS: ALB/GLOB Ratio 1.3 RATIO (0.9-2.4); AST(SGOT) 4 U/L (15-37); Alanine Aminotransfer ALT/SGPT 37 U/L (16-61); Albumin, Serum 3.9 g/dL (3.2-5.0); Alkaline Phosphatase 70 U/L (45-117); Anion Gap 7 (5-15); BUN 18 mg/dL (7-18); BUN/Creat Ratio 14.5 RATIO (10-20); Calcium,Total 8.5 mg/dL (8.5-10.1); Chloride 104 mmol/L (98-107); Cholesterol 139 mg/dL (200); Creatinine, Serum 1.24 mg/dL (0.70-1.30); EST Glomerular Filtration Rate 63 mL/min (>60); Est Glom Filt Rate - Afr Amer 76 mL/min (>60); Glucose 79 mg/dL (74-106); High Density Lipoprotein 37 mg/dL; Potassium 4.2 mmol/L (3.5-5.1); Protein, Total 6.9 g/dL (6.4-8.2); Sodium Level 139 mmol/L (136-145); Thyroid Stim Hormone (TSH) 3.51 uIU/mL (0.358-3.74); Triglycerides 311 mg/dL; Very Low Density Lipoprotein 62 mg/dL (5-40)
== END | disposition home or self-care (01) ==
LOC: LAB 07:08
PROVIDERS: PCP Internal Medicine; Referring Provider Internal Medicine Endocrinology, Diabetes & Metabolism; Visit Provider Internal Medicine Endocrinology, Diabetes & Metabolism
DX: E11.9 Type 2 diabetes mellitus without complications (principal); E78.2 Mixed hyperlipidemia; R94.6 Abnormal results of thyroid function studies
CPT/HCPCS: 36415; 80053; 80061; 82043; 82570; 84443

== ENCOUNTER → 2022-11-08 | Outpatient (CLI) | payer OTHER, SELFPAY ==
--- NOTE | 2022-11-08 13:36 | RAD_ITS ---
INDICATION: PAIN EXAMINATION/TECHNIQUE: X-RAY - LEFT XR Shoulder Min 2 Views 5 VIEWS COMPARISON: FINDINGS: SOFT TISSUES: Mild calcific tendinopathy distal rotator cuff. No soft tissue swelling or gas. No radiopaque foreign body. BONES/JOINTS: Mild acromioclavicular hypertrophy and glenohumeral joint space narrowing. RAD/Shoulder min 2 Views IMPRESSION: Degenerative changes as above. Electronically Signed: Nils Duggan MD, RUSTY at 11:04 EDT ,
== END | disposition home or self-care (01) ==
LOC: RAD 13:34
PROVIDERS: PCP Internal Medicine; Referring Provider Student in an Organized Health Care Education/Training Program; Visit Provider Student in an Organized Health Care Education/Training Program
DX: M25.512 Pain in left shoulder (principal)
CPT/HCPCS: 73030

== ENCOUNTER → 2023-01-15 | Outpatient (CLI) | payer OTHER, SELFPAY ==
--- NOTE | 2023-01-15 15:39 | MRI_ITS ---
EXAM: MR LEFT UPPER EXTREMITY WITHOUT INTRAVENOUS CONTRAST, SHOULDER CLINICAL INDICATION: SHOULDER PAIN TECHNIQUE: Multiplanar and multisequence MR images of the left shoulder without intravenous contrast. COMPARISON: No relevant prior studies available. FINDINGS: TENDONS: SUPRASPINATUS: Unremarkable. Intact. INFRASPINATUS: Unremarkable. Intact. SUBSCAPULARIS: Unremarkable. Intact. TERES MINOR: Unremarkable. Intact. BICEPS BRACHII, LONG HEAD: Unremarkable. The extra-articular biceps tendon is in the bicipital groove. The intra-articular biceps tendon is normal. LIGAMENTS: GLENOHUMERAL: Unremarkable. Intact. MUSCLES: Muscles are normal. No rotator cuff muscle atrophy. FLUID: Unremarkable. No significant glenohumeral joint effusion. No significant fluid in the subacromial/subdeltoid bursa. CARTILAGE: Unremarkable. Articular cartilage intact. GLENOID LABRUM: Unremarkable. No labral tear. BONES/JOINTS: Nxxulkld-bj-ophysg hypertrophic degenerative changes acromioclavicular joint with moderate mass effect on the underlying soft tissues. 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 Type II acromion with curved undersurface. No subacromial enthesophyte. No os acromiale. OTHER SOFT TISSUES: Small amount of fluid signal in the subacromial/subdeltoid bursa. No rotator interval edema. MRI/Upper Ext Joint Only(Routine) IMPRESSION: 1. 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 2. Kzgvlimi-ev-iazmel hypertrophic degenerative changes acromioclavicular joint with moderate mass effect on the underlying soft tissues. 3. Question mild subacromial/subdeltoid bursitis. Electronically Signed: Samson Gasca MD at 4:34 EDT ,
== END | disposition home or self-care (01) ==
LOC: MRI 15:32
PROVIDERS: PCP Internal Medicine; Referring Provider Student in an Organized Health Care Education/Training Program; Visit Provider Student in an Organized Health Care Education/Training Program
DX: M25.512 Pain in left shoulder (principal)
CPT/HCPCS: 73221

== ENCOUNTER → 2023-03-08 | Outpatient (CLI) | payer OTHER, SELFPAY ==
[2023-03-08 08:24] LABS: PSA,Total - Annual Screen 0.81 ng/mL (0.00-4.00)
[2023-03-14 11:08] LABS: Testosterone, % Free 2.99 % (1.50-4.20); Testosterone, Free 10.29 ng/dL (5.00-21.00); Testosterone, Total 344 ng/dL (264-916)
== END | disposition home or self-care (01) ==
LOC: LAB 07:37
PROVIDERS: PCP Internal Medicine; Visit Provider Internal Medicine
DX: N40.0 Benign prostatic hyperplasia without lower urinary tract symptoms (principal); N52.9 Male erectile dysfunction, unspecified
CPT/HCPCS: 36415; 84153; 84402; 84403; G0103

== ENCOUNTER 2023-06-16 05:25 | Day surgery (SDC) | payer OTHER, SELFPAY ==
[2023-06-16] VITALS (7 sets, daily range): BP systolic 100–125; BP diastolic 68–86; PULSE 79–89; RESP 18; TEMP 36.1–36.2; O2SAT 99–100; BMI 25.1
--- OUTSIDE RECORDS SUMMARY | 2023-06-16 05:29 | XMS RPT_ITS | CCD ---
Author Name Unknown Address [address] [facility] [address] [place] [address] Organization [facility] Care Team Providers Care Hog Killer Name Role Phone Ksenia Kasia N Unavailable Kasia Mccormack Unavailable Rosa Sifuentes LPN Unavailable Unavailab Kasia Lyman Unavailable Kasia Mccormack Unavailable Rosa Sifuentes LPN Unavailable Unavailab jose alberto Winkler DO, Dennis Primary Care Provider Medications Current Medications Medication Drug Class(es) Dates Sig (Normalized) Sig (Original) gabapentin 300 mg oral capsule (3 sources) Anti-epileptic Agent Start: 07-10-2020 End: 02-06-2023 take 1 capsule by mouth once daily at bedtime gabapentin (NEURONTIN) 300 mg capsule TAKE 1 CAPSULE BY MOUTH EVERY NIGHT AT BEDTIME 90 capsule 0 02/06/2022 02/06/2023 Active Completed/Discontinued Medications Medication Drug Class(es) Dates Sig (Normalized) Sig (Original) aspirin 81 mg delayed release oral tablet (8 sources) Platelet Aggregation Inhibitor, Nonsteroidal Anti-inflammatory Drug Start: 10-07-2007 ASPIRIN 81 MG TAB, DELAYED RELEASE Take one(1) tablet daily. 0 10/07/2007 Active Problems Active Problems Problem Classification Problem Date Documented Da te Episodic/Chronic Diabetes mellitus without complication (2 sources) Type 2 diabetes mellitus without complication; Translations: [Type 2 diabetes mellitus without complications] 02-14-2016 Chronic Disorders of lipid metabolism (2 sources) Mixed hyperlipidemia; Translations: [Mixed hyperlipidemia] 05-06-2005 Chronic Other nervous system disorders (12 sources) Lesion of ulnar nerve, unspecified upper limb; Translations: [Lesion of ulnar nerve, unspecified upper limb] Onset: 09-21-2014 09-28-2014 Chronic Unclassified (2 sources) Encounter for check-up ; Translations: [Encounter for general adult medical examination without abnormal findings] Onset: 02-19-2017 02-19-2017 Past or Other Problems Problem Classification Problem Date Documented Da te Episodic/Chronic Other aftercare (6 sources) Encounter for other specified surgical aftercare; Translations: [Encounter for other specified surgical aftercare] Onset: 09-21-2014 09-21-2014 Episodic Other and unspecified benign neoplasm (6 sources) Lipoma of other skin and subcutaneous tissue; Translations: [Lipoma of other skin and subcutaneous tissue] Onset: 09-21-2014 09-21-2014 Episodic Other connective tissue disease (9 sources) Calcific tendinitis of shoulder; Translations: [Ganglion of joint] Onset: 09-21-2014 11-25-2016 Episodic Other connective tissue disease (3 sources) Ganglion of joint; Translations: [Ganglion of joint] Onset: 09-21-2014 09-21-2014 Episodic Other male genital disorders (2 sources) Spermatocele; Translations: [Spermatocele of epididymis, unspecified] Onset: 10-18-2009 10-18-2009 Episodic Other male genital disorders (2 sources) Pain in testicle; Translations: [Testicular pain, unspecified] Onset: 10-18-2009 10-18-2009 Episodic Other non-traumatic joint disorders (7 sources) Impingement syndrome of shoulder region; Translations: [Pain in right shoulder] Onset: 11-11-2016 11-25-2016 Episodic Other non-traumatic joint disorders (2 sources) Pain in right shoulder; Translations: [Pain in right shoulder] Onset: 11-11-2016 11-11-2016 Episodic Other skin disorders (2 sources) Skin lesion; Translations: [Disorder of the skin and subcutaneous tissue, unspecified] Onset: 03-14-2010 03-14-2010 Episodic Results Test Name Value Interpretation Reference Range Facil ity Vital Signs Date Time Vital Sign Value Performing Clinician Facility 02-19-2017 15:16-0400 BMI (Body Mass Index) 24.85 kg/m2 Rosa Sifuentes LPN [facility] Work Phone: 02-19-2017 15:16-0400 Body Temperature 97.2 [degF] Rosa Sifuentes LPN [facility] Work Phone: 02-19-2017 15:16-0400 BP Diastolic 78 mm[Hg] Rosa Sifuentes LPN [facility] Work Phone: 02-19-2017 15:16-0400 BP Systolic 126 mm[Hg] Rosa Sifuentes LPN [facility] Work Phone: 02-19-2017 15:16-0400 Height 180.34 cm Rosa Sifuentes LPN [facility] Work Phone: 02-19-2017 15:16-0400 Pulse (Heart Rate) 109 /min Rosa Sifuentes LPN [facility] Work Phone: 02-19-2017 15:16-0400 Respiratory Rate 13 /min Rosa Sifuentes LPN [facility] Work Phone: 02-19-2017 15:16-0400 Weight 80.83 kg Rosa Sifuentes LPN [facility] Work Phone: 11-11-2016 14:46-0400 BMI (Body Mass Index) 24.61 kg/m2 [facility] Work Phone: 11-11-2016 14:46-0400 Weight 83.46 kg [facility] Work Phone: 10-07-2014 10:49-0400 BMI (Body Mass Index) 24.23 kg/m2 [facility] Work Phone: 10-07-2014 10:49-0400 Body Temperature 97.4 [degF] [facility] Work Phone: 10-07-2014 10:49-0400 BP Diastolic 81 mm[Hg] [facility] Work Phone: 10-07-2014 10:49-0400 BP Systolic 118 mm[Hg] [facility] Work Phone: 10-07-2014 10:49-0400 BSA (Body Surface Area) 2.05 m2 [facility] Work Phone: 10-07-2014 10:49-0400 Pulse (Heart Rate) 83 /min [facility] Work Phone: 10-07-2014 10:49-0400 Pulse Oximetry 96 % [facility] Work Phone: 10-07-2014 10:49-0400 Respiratory Rate 14 /min [facility] Work Phone: 10-07-2014 10:49-[address] [facility] Work Phone: 09-28-2014 14:29-0400 Height 184.15 cm [facility] Work Phone: Encounters Encounter Date Encounter Type Care Provider Facility Start: 02-04-2022 Tarik Michelle Work Phone: [facility] Procedures Date Procedure Procedure Detail Performing Clinician Start: 02-19-2017 End: 02-19-2017 [facility] [employer] [facility] Franc Jorge Work Phone: Start: 02-19-2017 End: 02-19-2017 Obsorb Physical Franc Jorge Work Phone: Start: 11-11-2016 End: 11-25-2016 Arthrocentesis aspir&/inj major jt/bursa w/o Sunny Thomas Work Phone: Start: 11-11-2016 End: 11-25-2016 Drain/inject, joint/bursa Sunny Thomas Work Phone: Start: 10-07-2014 End: 10-11-2014 Follow Up Appt 3 months Koby Romano MD Start: 10-07-2014 End: 10-11-2014 Follow Up Appt 3 months Koby Romano MD Start: 09-28-2014 End: 10-11-2014 Follow up Appt 1 week Koby Romano MD Start: 09-28-2014 End: 10-06-2014 OT-Hand Therapy Koby Romano MD Start: 09-28-2014 End: 10-11-2014 Follow up Appt 1 week Koby Romano MD Start: 09-28-2014 End: 10-06-2014 OT-Hand Therapy Koby Romano MD Plan of Treatment Date Care Activity Detail Author Start: 11-05-2022 Hepatitis C antibody, confirmatory test DILATED RETINAL EXAM [facility] Start: 01-24-2022 Influenza vaccination INFLUENZA (#1) [facility] Start: 11-24-2020 COVID-19 VACCINE (3 - Booster for Moderna series) COVID-19 VACCINE (3 - Booster for Moderna series) [facility] Start: 04-18-2019 Hemoglobin A1c/Hemoglobin.total in Blood HBA1C [facility] Start: 02-19-2017 End: 02-19-2017 Appointment Appointment [facility] Work Phone: Start: 11-11-2016 End: 11-11-2016 Radex shoulder complete minimum 2 views X-Ray, Shoulder [facility] Work Phone: Start: 11-11-2016 End: 11-11-2016 X-ray exam of shoulder [facility] Work Phone: Start: 04-17-2016 PROSTATE CANCER SCREENING DISCUSSION PROSTATE CANCER SCREENING DISCUSSION [facility] Start: 10-18-2014 End: 10-18-2014 OT-Hand Therapy [facility] [address] [place] [address], [id number] [facility] Work Phone: Start: 10-18-2014 End: 10-18-2014 OT-Hand Therapy [facility], [address] [place] [address], [address] [facility] Work Phone: Start: 10-07-2014 End: 10-11-2014 Follow Up Appt 3 months Follow Up Appt 3 months [facility] Work Phone: Start: 10-07-2014 End: 10-11-2014 Follow Up Appt 3 months Follow Up Appt 3 months [facility] Work Phone: Start: 09-28-2014 End: 10-11-2014 Follow up Appt 1 week Follow up Appt 1 week [facility] Work Phone: Start: 09-28-2014 End: 10-06-2014 OT-Hand Therapy OT-Hand Therapy Physical Therapy [facility] [employer], [address] [place] [address], [address] [facility] Work Phone: Start: 09-28-2014 End: 10-11-2014 Follow up Appt 1 week Follow up Appt 1 week [facility] Work Phone: Start: 09-28-2014 End: 10-06-2014 OT-Hand Therapy [facility] Therapy Physical Therapy [facility] [employer], [address] [place] [address], [id number] [facility] Work Phone: Start: 08-08-2013 Hepatitis B screening URINE ALBUMIN:CREATININE RATIO [facility] Start: 08-08-2013 Hepatitis B surface antibody level LDL CHOLESTEROL [facility] Start: 2011 SHINGRIX VACCINE (1 of 2) SHINGRIX VACCINE (1 of 2) [facility] Start: 2006 COLOGUARD (FIT-DNA) COLOGUARD (FIT-DNA) [facility] Start: 2006 Colonoscopy [address] [facility] Start: 2006 COLORECTAL CANCER SCREENING COLORECTAL CANCER SCREENING [facility] Start: [address] COLONOGRAPHY [facility] Start: 2006 FECAL OCCULT BLOOD FECAL OCCULT BLOOD [facility] Start: [address] [facility] Start: 02-02-1980 Urine microalbumin profile DTAP,TDAP,TD (1 - Tdap) [facility] Start: 1979 ANNUAL PCP TEAM CHRONIC DISEASE VISIT ANNUAL PCP TEAM CHRONIC DISEASE VISIT [facility] Start: 1979 HEPATITIS C SCREENING HEPATITIS C SCREENING [facility] Start: 1979 HIV SCREENING HIV SCREENING [facility] Start: 1973 Adult depression screening assessment DEPRESSION SCREENING [facility] Start: 1971 3 comp foot exam completed DIABETIC FOOT EXAM [facility] Start: 1967 PNEUMOCOCCAL (1 - PCV) PNEUMOCOCCAL (1 - PCV) [facility] Patient Education Medications [facility] Work Phone: Payers Date Payer Category Payer Unknown MMO MMO TPA [id number] 2019-Present [address] [place] [address] PPO [id number] Social History Date Type Detail Facility Start: 02-13-2018 Tobacco smoking stat us NHIS Ex-smoker [facility] End: 03-26-1998 History of tobacco use Current smoker [facility] End: 03-26-1998 History of tobacco use Cigarette Smoker [facility] Start: 02-13-2018 Tobacco use and exposure Smoke less tobacco non-user [facility] Start: 12-27-2020 Alcohol intake Current drinke r of alcohol (finding) [facility] Start: 04-24-2011 History SDOH Alcohol Comment every few days- mixed drinks usually [facility] Start: 1960 Sex Assigned At Not on file C [facility] Medical Equipment Procedure Code Equipment Code Equipment Origin al Text Equipment Identifier Dates 1 Strip as direc luly. Use as instructed Start: 02-10-2013 Note 02-04-2022 Telephone Encounter - Negin Urias LPN - 02/04/2022 11:07 AM EDT Note Date & Type Note Facility 02-04-2022 Miscellaneous Notes Formattin g of this note is different from the original. Patient phones requesting refills as follows: Requested Prescriptions Pending Prescriptions Disp Refills gabapentin (NEURONTIN) 300 mg capsule [Pharmacy Med Name: GABAPENTIN 300 MG CAPSULE] 90 capsule 0 Sig: TAKE 1 CAPSULE BY MOUTH EVERY NIGHT AT BEDTIME Please review and advise. Negin Urias LPN documented in this encounter [facility] Progress note 12-27-2020 Note Date & Type Note Facility 12-27-2020 Note HNO ID: [id number] Author: Alexander Garibay V, DO Service: ? Author Type: Physician Type: Progress Notes Filed: 12/27/2020 4:29 PM Note Text: SUBJECTIVE: This is a 60 year old male that is here today for yearly checkup. He sees Dr. Collins for diabetes mellitus care. He has had his yearly eye exam and skin check in the last few months. States that his blood sugars are running under good control and his last hemoglobin A1c at Dr. Collins's office was 7.0. He continues to follow a healthy diet and exercise plan, and states that he feels good overall. PAST MEDICAL HISTORY Diagnosis Date - Basal cell carcinoma of skin - Mixed hyperlipidemia - Type II or unspecified type diabetes mellitus with neurological manifestations, not stated as uncontrolled(250.60) PAST SURGICAL HISTORY Procedure Laterality Date - HERNIA REPAIR 1977 inguinal hernia repair - PAST SURGICAL HISTORY OF 03/2011 removal lesion- upper back- Dr. Dobson - PAST SURGICAL HISTORY OF Left release on the lateral side of left hand - PAST SURGICAL HISTORY OF Left cyst removal left wrist - REM LESION NEC,HAND,SCAL<0.5CM 02/20/10 Re-excision right neck BCC with no residual - REM LESION TRUNK,ARM, LEG <0.5 CM 03/14/10 Re-excision right upper back skin lesion Current Outpatient Medications on File Prior to Visit Medication Sig - insulin glargine (LANTUS SOLOSTAR U-100 INSULIN) 100 unit/mL (3 mL) Inject 10 Units subcutaneously. Taking 25 units daily - Cholecalciferol, Vitamin D3, (VITAMIN D) 25 mcg (1,000 unit) cap Take 1,000 Units by mouth once daily. - empagliflozin (JARDIANCE) 10 mg tablet Take 10 mg by mouth daily with breakfast. - atorvastatin (LIPITOR) 20 mg tablet Take 1 tablet by mouth once daily. - sitaGLIPtin (JANUVIA) 100 mg tablet Take 1 tablet by mouth once daily. - metFORMIN ER (GLUCOPHAGE XR) 500 mg 24 hr tablet Take 4 tablets by mouth once daily. (Patient taking differently: Take 1,000 mg by mouth twice daily before meals. ) - blood sugar diagnostic (FREESTYLE TEST) test strip 1 Strip as directed. Use as instructed - ASPIRIN 81 MG TAB, DELAYED RELEASE Take one(1) tablet daily. - gabapentin (NEURONTIN) 300 mg capsule Take 1 capsule by mouth daily at bedtime for 151 days. - icosapent ethyl (VASCEPA) 1 gram Take 2 g by mouth twice daily with meals. - cyclobenzaprine (FLEXERIL) 10 mg tablet Take 1 tablet by mouth three times daily as needed for Muscle Spasm. - fenofibrate nanocrystallized (TRICOR) 145 mg tablet Take 1 tablet by mouth once daily. (Patient not taking: Reported on 12/27/2020 ) - glimepiride 2 mg tablet Take 4 mg by mouth twice daily with meals. - Vardenafil HCl (LEVITRA) 20 mg tablet Take 20 mg by mouth as needed. - COMPOUNDED PRESCRIPTION protien shakes x3 / wk No current facility-administered medications on file prior to visit. Social History Tobacco Use - Smoking status: Former Smoker Quit date: 03/26/1998 Years since quittin.7 - Smokeless tobacco: Never Used - Tobacco comment: rare cigar Vaping Use - Vaping Use: Never used Substance Use Topics - Alcohol use: Yes Comment: every few days- mixed drinks usually - Drug use: No OBJECTIVE: APPEARANCE Well appearing, alert, in no acute distress, well-hydrated, well nourished. EYES PERRLA, conjunctiva and sclera normal. THROAT normal, no erythema NECK Supple, no adenopathy; thyroid symmetric, normal size, no bruits HEART RRR with normal S1 and S2, no murmurs, no gallops, no JVD appreciated LUNG clear to auscultation EXTREMITIES Extremities normal, No deformities, No skin discoloration, No edema and Normal pulses bilaterally. ASSESSMENT: Diabetes mellitus type 2, currently on insulin good control hyPerlipidemia Cervical radiculopathy-stable PLAN: Continue with diet and exercise practices as discussed. Patient's request for medication is as follows Signed Prescriptions Disp Refills gabapentin (NEURONTIN) 300 mg capsule 90 capsule 3 Sig: TAKE 1 CAPSULE BY MOUTH EVERY NIGHT AT BEDTIME DAVID: No Lab work drawn at outside facility Alexander Garibay DO [facility] Progress note 12-27-2020 Note Date & Type Note Facility 12-27-2020 Note HNO ID: [id number] Author: Nilsa Casillas Ma Service: ? Author Type: ? Type: Progress Notes Filed: 12/27/2020 4:29 PM Note Text: Patient presents with: Yearly physical AMB ROOMING INTAKE FLOWSHEET DATA Risk Screening Do you have concerns about personal safety or safety in the home?: No 127/83 [facility] Summary Purpose Family History No Family History Records Found Advance Directives No Advanced Directives Records Found Additional Source Comments (unrecognized sect ion and content) No Status Records Found INFORMATION SOURCE (unrecogn ized section and content) Source Comments (unrecognize d section and content) In the event this informatio n is protected by the Federal Confidentiality of Alcohol and Drug Abuse Patient Records regulations: The Federal rules restrict any use of the information to criminally investigate or prosecute any alcohol or drug abuse patient.[facility] event this information is protected by the Federal Confidentiality of Alcohol and Drug Abuse Patient Records regulations: The Federal rules restrict any use of the information to criminally investigate or prosecute any alcohol or drug abuse patient.[facility] Reason for Visit (unrecogniz ed section and content) Care Teams (unrecognized sec tion and content) Hog Killer Relationship Specialty Start Date End Date PhoenixAlexAlexander, V, DO [address], [place] [address] PCP - General 07/24/07 FOR RECORDS PERTAINING TO PATIENTS WHO ARE OR HAVE BEEN ENROLLED IN A CHEMICAL DEPENDENCY/SUBSTANCEABUSE PROGRAM, SOME INFORMATION MAY BE OMITTED. This clinical summary was aggregated from multiple sources. Caution should be exercised in using it in the provision of clinical care. This summary normalizes information from multiple sources, and as a consequence, information in this document may materially change the coding, format and clinical context of patient data. In addition, data may be omitted in some cases. CLINICAL DECISIONS SHOULD BE BASED ON THE PRIMARY CLINICAL RECORDS. [employer] provides no warranty or guarantee of the accuracy or completeness of information in this document.
[2023-06-16] MEDS: Lactated Ringers 1,000 ML 15 ML IV (06:04)
--- NOTE | 2023-06-16 06:30 | COLBX_PTH ---
PATHOLOGY RESULTS PATIENT: CHRIS BERNABE Jr. LOC: EN U#:[id number] AGE/SX: 63/M ROOM: RE06/16/[address]: Dr. Rudy Mayo DO : 1960 BED: DIS: 06/16/2023 SPEC #: [id number] RECD: 06/16/23 11:13 STATUS: LAYLA OSWALD #: [id number] JOSUE: 06/16/23 06:[address]: Rudy Mayo DEPT: SURGICAL PATHOLOGY RECD BY: Dannielle Brito ENTERED: 06/16/23 11:13 SP TYPE: COLON BX OT DR: Dr. Violetta Berg MD Tissues: Transverse colon Cecum, NOS COLON BIOPSY Sigmoid colon biopsy Rectum, NOS Procedures: Surgery Specimen Level IV HEADER OPERATION: Colonoscopy - open access with polyp biopsy and polypectomy PRE-OP DIAGNOSIS: Screening TISSUE SUBMITTED: A - Transverse colon polyp biopsy, B - Cecum polyp, C - Hepatic flexure polyp, D - Sigmoid polyp, E - Rectosigmoid polyp MICROSCOPIC DIAGNOSIS A. Transverse colon polyp, biopsy: Fragments of tubular adenoma. B. Cecum polyp, polypectomy: Fragments of hyperplastic polyp. C. Hepatic flexure polyp, polypectomy: Fragments of tubular adenoma. D. Sigmoid polyp, polypectomy: Fragments of hyperplastic polyp. E. Rectosigmoid polyp, polypectomy: Hyperplastic polyp. SJ:ezra 06/17/2023 MICROSCOPIC DESCRIPTION Slides are reviewed. GROSS DESCRIPTION A - Received in fixative is one container labeled with the patient's name and designated transverse colon polyp biopsy. The specimen consists of two irregular fragments of light schwarz soft tissue that in aggregate measure 0.6 x 0.3 x 0.1 cm. The specimen is totally submitted in one cassette. B - Received in fixative is one container labeled with the patient's name and designated cecum polyp. The specimen consists of multiple irregular fragments of light schwarz soft tissue that in aggregate measure 1.0 x 0.6 x 0.1 cm. The specimen is totally submitted in one cassette. C - Received in fixative is one container labeled with the patient's name and designated hepatic flexure polyp. The specimen consists of multiple irregular fragments of light schwarz soft tissue that in aggregate measure 1.5 x 0.5 x 0.1 cm. The specimen is totally submitted in one cassette. D - Received in fixative is one container labeled with the patient's name and designated sigmoid polyp. The specimen consists of multiple irregular fragments of light schwarz soft tissue that in aggregate measure 0.6 x 0.8 x 0.1 cm. The specimen is totally submitted in one cassette. E - Received in fixative is one container labeled with the patient's name and designated rectosigmoid polyp. The specimen consists of one irregular fragment of light schwarz soft tissue that measures 0.5 x 0.5 x 0.1 cm. The specimen is totally submitted in one cassette. / SJ:ezra 06/16/2023 TC:1 CPT: 63250 x5
--- NOTE | 2023-06-16 06:31 | PCM.HP.STD ---
[facility] - General General Date of Admission: 06/16/23 Date of Service: 06/16/23 Chief Complaint: Screening colonoscopy HPI Narrative CHRIS BERNABE, is a 63 M who presents today for screening colonoscopy. He has a past medical history of diabetes which is under control, hypertension who underwent colonoscopy over 10 years ago. He is not having any problems with his bowels. He does not have any chest pain or shortness of breath. He is not having any weakness. Overall he is in very good health. [facility] Medical History (Updated 06/16/23 @ 06:[address] Grant Friend, DO) Abnormal finding on thyroid function test Alcohol use Anxiety BPH (benign prostatic hyperplasia) Calcific tendinitis of left shoulder Colon cancer screening Depression Dietary restriction Erectile dysfunction Former smoker Gastric reflux Health care maintenance History of steroid therapy History of stress test Hx of colonic polyps Hyperlipidemia Hypertension Insulin dependent diabetes mellitus Insulin dependent diabetes mellitus Left shoulder pain Skin cancer, basal cell Type 2 diabetes mellitus Home Medications cholecalciferol (vitamin D3) 25 mcg (1,000 unit) capsule 25 mcg PO DAILY 05/15/20 [History Last Taken Unknown] creatine monohydrate 1 ea PO DAILY 08/28/21 [History Last Taken Unknown] omeprazole 20 mg capsule,delayed release 20 mg PO QHS 03/27/22 [History Last Taken Unknown] atorvastatin 20 mg tablet 20 mg PO QHS #90 tabs 05/15/22 [Rx Last Taken Unknown] pen needle, diabetic 32 gauge x 5/32 (BD Ultra-Fine Christina Pen Needle) #100 ea 08/26/22 [Rx Last Taken Unknown] icosapent ethyl 1 gram capsule (Vascepa) 2 g (2 x 1 gram) PO BID #360 caps 09/29/22 [Rx Last Taken 06/12/23] fadogia agrestis 600 tongkat ali 400 2 cap PO DAILY 10/16/22 [History Last Taken Unknown] Lantus Solostar U-100 Insulin 100 unit/mL (3 mL) subcutaneous pen (insulin glargine) 30 unit (0.3 mL) subcut QAM #30 mL 01/02/23 [Rx Last Taken 06/16/23 13 unit] empagliflozin 25 mg tablet (Jardiance) 25 mg PO DAILY #90 tabs 01/02/23 [Rx Last Taken Unknown] metformin 500 mg tablet 1,000 mg (2 x 500 mg) PO BID #360 tabs 01/02/23 [Rx Last Taken Unknown] sitagliptin phosphate 100 mg tablet 100 mg PO DAILY 03/05/23 [History Last Taken Unknown] aspirin 81 mg tablet,delayed release (Adult Low Dose Aspirin) 81 mg PO DAILY 03/13/23 [History Last Taken 06/12/23] meloxicam 7.5 mg tablet 7.5 mg PO DAILY 03/13/23 [History Last Taken Unknown] glimepiride 4 mg tablet 4 mg PO BID #180 tabs 05/22/23 [Rx Last Taken Unknown] bupropion HCl 150 mg 24 hr tablet, extended release See Rx Instructions .Route .COMPLEX #30 tabs 06/09/23 [Rx Last Taken Unknown] buspirone 5 mg tablet See Rx Instructions .Route .COMPLEX #60 tabs 06/09/23 [Rx Last Taken Unknown] tadalafil 5 mg tablet See Rx Instructions .Route .COMPLEX #30 tabs 06/09/23 [Rx Last Taken Unknown] Allergy/AdvReac Type Severity Reaction Status Date / Time No Known Allergies Allergy Verified 06/16/23 05:52 Family History Mother Diabetes Heart disease Surgical History (Updated 06/13/23 @ 08:05 by Cindy Ahn) VONNIE Ganglion cyst Hx of colonoscopy Inguinal hernia Social History household members: other details: girlfriend and her daughter housing: house current occupational status: employed current occupation: [employer] sexually active: Yes Smoking Status: Former smoker pack-years: 15 alcohol intake: current alcohol intake frequency: a few times a month substance use type: does not use what type of physical activity do you participate in: walking, running and weight training frequency: 3-4 times per week seatbelt use: always do you feel safe at home: Yes ROS Review of Systems ROS Unobtainable: other Constitutional Constitutional: Denies fatigue, fever(s), poor appetite, weight gain or weight loss ENT HEENT: Denies mouth lesions Cardiovascular Cardiovascular: Denies abdominal bloating, abdominal edema or abdominal pain Respiratory/Chest Respiratory/Chest: Denies change in mental status, change in phlegm color, chest congestion or chest tightness Gastrointestinal Gastrointestinal: Denies belching, bloating, change in bowel habits, change in stool character, chewing difficulty, coffee ground emesis, constipation, cramping, diarrhea, dyspepsia, dysphagia, early satiety, excessive flatus, fecal incontinence, heartburn, hematemesis, hematochezia, hemorrhoids, loose stools, melena, nausea, odynophagia, rectal bleeding, tenesmus, vomiting or weight changes Genitourinary Genitourinary: Denies abdominal discomfort, burning urination or itching Musculoskeletal Musculoskeletal: Reports as per HPI; Denies muscle weakness or myalgias Integumentary Integumentary: Denies jaundice Neurologic Neurologic: Denies lack of coordination or weakness Psychiatric Psychiatric: Denies confusion, depression, memory loss, mood swings, paranoia or suicidal ideation Endocrine Endocrinology: Denies systems reviewed and no addt'l complaints, except as documented Hematologic/Lymphatic Hematologic/Lymphatic: Denies anemia, easy bleeding, easy bruising or lymphadenopathy Allergic/Immunologic Allergic/Immunologic: Denies systems reviewed and no addt'l complaints, except as documented Vital Signs Vital Signs Vital Signs: 06/16/23 05:53 06/16/23 05:53 Temperature 97.2 F L Temperature Source Temporal Pulse Rate 89 Respiratory Rate 18 Respiratory Pattern Normal Blood Pressure 125/86 H Blood Pressure Mean 99 Blood Pressure Source Monitor Blood Pressure Position Semi-Fowlers Blood Pressure Location Left Arm Pulse Ox 99 Oxygen Delivery Method Room Air Weight Weight: 180 lb 1.883 oz Body Mass Index (BMI) 25.1 Physical Exam Const alert General Appearance: cooperative Orientation / Consciousness: oriented to person HEENT hearing grossly normal bilaterally Head and Scalp: normal to inspection Face and Sinus: face symmetric Nose: external nose normal Mouth: oral and palatal mucosa normal Eyes conjunctivae normal General Eye: normal appearance of both eyes Neck full ROM General: normal visual inspection Lymph Lymphatic: no lymphadenopathy noted Chest inspection of chest normal and palpation of chest normal Chest: symmetrical chest wall rise Resp normal respiratory effort Effort and Inspection: able to speak in complete sentences Cardio regular rate GI non-distended Percussion: normal to percussion Rectal Exam: deferred Neuro Speech: speech normal Gait (Neuro): normal gait Assessment & Plan Assessment/Plan (1) Screening for malignant neoplasm of colon: PLAN: He was explained alternatives, benefits, risk including not withstanding bleeding, infection, sepsis, perforation, need for emergent surgery and . He will have an ASA of 3.
[2023-06-16 06:35] LABS: Bedside Glucose 155 mg/dL (74-106)
--- NOTE | 2023-06-16 07:13 | OP.COLON_ITS ---
Patient Name: Otis Alanis Procedure Date: 06/16/2023 6:22 AM Date of : 1960 Age: 63 Procedure: Colonoscopy Indications: Screening for colorectal malignant neoplasm Providers: Rudy Mayo DO Medicines: Monitored Anesthesia Care Patient Profile: This is a 63 year old male. Refer to note in patient chart for documentation of history and physical. Last Colonoscopy: more than 10 years ago. Complications: No immediate complications. Procedure: Pre-Anesthesia Assessment: - Prior to the procedure, a History and Physical was performed, and patient medications and allergies were reviewed. The patient is competent. The risks and benefits of the procedure and the sedation options and risks were discussed with the patient. All questions were answered and informed consent was obtained. Patient identification and proposed procedure were verified by the physician in the pre-procedure area. Mental Status Examination: normal. Prophylactic Antibiotics: The patient does not require prophylactic antibiotics. Prior Anticoagulants: The patient has taken no anticoagulant or antiplatelet agents. ASA Grade Assessment: III - A patient with severe systemic disease. After reviewing the risks and benefits, the patient was deemed in satisfactory condition to undergo the procedure. The anesthesia plan was to use monitored anesthesia care (MAC). Immediately prior to administration of medications, the patient was re-assessed for adequacy to receive sedatives. The heart rate, respiratory rate, oxygen saturations, blood pressure, adequacy of pulmonary ventilation, and response to care were monitored throughout the procedure. The physical status of the patient was re-assessed after the procedure. After I obtained informed consent, the scope was passed under direct vision. Throughout the procedure, the patient's blood pressure, pulse, and oxygen saturations were monitored continuously. The Colonoscope was introduced through the anus and advanced to the cecum, identified by appendiceal orifice and ileocecal valve. The colonoscopy was performed without difficulty. The patient tolerated the procedure well. The quality of the bowel preparation was adequate. The ileocecal valve, appendiceal orifice, and rectum were photographed. Scope In: 6:39:32 AM Scope Withdrawal Time 0 hours 17 minutes 59 seconds Scope Out: 7:01:42 AM Total Procedure Duration Time 0 hours 22 minutes 10 seconds Findings: Hemorrhoids were found on perianal exam. Multiple small and large-mouthed diverticula were found in the recto-sigmoid colon, sigmoid colon and descending colon. Six sessile polyps were found in the recto-sigmoid colon, sigmoid colon, hepatic flexure and cecum. The polyps were 1 to 2 mm in size. These polyps were removed with a saline injection-lift technique using a hot snare. Resection and retrieval were complete. Verification of patient identification for the specimen was done. Estimated blood loss was minimal. A 3 mm polyp was found in the transverse colon. The polyp was sessile. The polyp was removed with a cold biopsy forceps. Resection and retrieval were complete. Verification of patient identification for the specimen was done. Estimated blood loss was minimal. Impression: - Hemorrhoids found on perianal exam. - Diverticulosis in the recto-sigmoid colon, in the sigmoid colon and in the descending colon. - Six 1 to 2 mm polyps at the recto-sigmoid colon, in the sigmoid colon, at the hepatic flexure and in the cecum, removed using injection-lift and a hot snare. Resected and retrieved. - One 3 mm polyp in the transverse colon, removed with a cold biopsy forceps. Resected and retrieved. Recommendation: - Repeat colonoscopy in 5 years for surveillance. - Continue present medications. Procedure Code(s): --- Professional --- 38756, Colonoscopy, flexible; with removal of tumor(s), polyp(s), or other lesion(s) by snare technique 90944, 59, Colonoscopy, flexible; with biopsy, single or multiple 02827, Colonoscopy, flexible; with directed submucosal injection(s), any substance CPT copyright 2021 [employer]. All rights reserved. The codes documented in this report are preliminary and upon hide dropper review may be revised to meet current compliance requirements. Rudy Mayo DO 06/16/2023 7:12:42 AM This report has been signed electronically. Number of Addenda: 0 Note Initiated On: 06/16/2023 6:22 AM
--- NOTE | 2023-06-16 07:13 | OP.CCLET_ITS ---
06/16/2023 Violetta Berg MD [address] [place] [address] [place] [address] Re : Colonoscopy procedure for Otis Bhagatnally Dear Dr. Berg This procedure was performed on Friday, June 16, 2023. My impressions and recommendations are as follows: Impressions : - Hemorrhoids found on perianal exam. - Diverticulosis in the recto-sigmoid colon, in the sigmoid colon and in the descending colon. - Six 1 to 2 mm polyps at the recto-sigmoid colon, in the sigmoid colon, at the hepatic flexure and in the cecum, removed using injection-lift and a hot snare. Resected and retrieved. - One 3 mm polyp in the transverse colon, removed with a cold biopsy forceps. Resected and retrieved. Recommendations : - Repeat colonoscopy in 5 years for surveillance. - Continue present medications. My findings are described in the full procedure note, which is enclosed. If I can be of further assistance, please feel free to contact me at . Sincerely, Rudy Mayo, 06/16/2023 7:12:42 AM This report has been signed electronically.
== END 2023-06-16 08:12 | disposition home or self-care (01) ==
LOC: EN 05:26 → AC 05:27
PROVIDERS: PCP Internal Medicine; Referring Provider Internal Medicine; Visit Provider Internal Medicine Gastroenterology
PROC: 0DJD8ZZ Inspection of Lower Intestinal Tract, Via Natural or Artificial Opening Endoscopic (ICD-10-PCS; CPT 45378; principal; 2023-06-16 06:25)
DX: Z12.11 Encounter for screening for malignant neoplasm of colon (principal); E11.69 Type 2 diabetes mellitus with other specified complication; Z79.4 Long term (current) use of insulin; D12.3 Benign neoplasm of transverse colon; K57.30 Diverticulosis of large intestine without perforation or abscess without bleeding; K21.9 Gastro-esophageal reflux disease without esophagitis; K64.8 Other hemorrhoids; K63.5 Polyp of colon; I10 Essential (primary) hypertension; E78.2 Mixed hyperlipidemia; F32.A Depression, unspecified; F41.9 Anxiety disorder, unspecified; Z79.82 Long term (current) use of aspirin; Z79.84 Long term (current) use of oral hypoglycemic drugs; Z79.899 Other long term (current) drug therapy; Z86.010 Personal history of colon polyps; Z87.891 Personal history of nicotine dependence
CPT/HCPCS: 45381; 45385; 45380; 82962; 88305; J7120; J2405

== ENCOUNTER → 2024-01-13 | Outpatient (CLI) | payer OTHER, SELFPAY ==
[2024-01-13 08:57] LABS: Microalbumin,Random Urine < 5.0 mg/L (NO RANGE EST.)
[2024-01-13 09:06] LABS: ALB/GLOB Ratio 1.1 RATIO (0.9-2.4); AST(SGOT) 11 U/L (15-37); Alanine Aminotransfer ALT/SGPT 27 U/L (16-61); Albumin, Serum 3.6 g/dL (3.2-5.0); Alkaline Phosphatase 80 U/L (45-117); Anion Gap 6 (5-15); BUN 19 mg/dL (7-18); BUN/Creat Ratio 17.4 RATIO (10-20); Calcium,Total 8.8 mg/dL (8.5-10.1); Chloride 105 mmol/L (98-107); Cholesterol 152 mg/dL (200); Creatinine, Serum 1.09 mg/dL (0.70-1.30); EST Glomerular Filtration Rate 73 mL/min (>60); Est Glom Filt Rate - Afr Amer 88 mL/min (>60); Globulin 3.2 g/dL (2.2-4.2); Glucose 159 mg/dL (74-106); High Density Lipoprotein 44 mg/dL; Potassium 4.1 mmol/L (3.5-5.1); Protein, Total 6.8 g/dL (6.4-8.2); Sodium Level 138 mmol/L (136-145); Triglycerides 408 mg/dL
== END | disposition home or self-care (01) ==
LOC: LAB 07:24
PROVIDERS: PCP Internal Medicine; Referring Provider Internal Medicine Endocrinology, Diabetes & Metabolism; Visit Provider Internal Medicine Endocrinology, Diabetes & Metabolism
DX: E11.65 Type 2 diabetes mellitus with hyperglycemia (principal); E78.2 Mixed hyperlipidemia; I10 Essential (primary) hypertension; R94.6 Abnormal results of thyroid function studies
CPT/HCPCS: 36415; 80053; 80061; 82043; 82570; 84443

== ENCOUNTER → 2024-06-30 | Outpatient (CLI) | payer OTHER, SELFPAY ==
[2024-06-30 12:32] LABS: Absolute Lymphocyte Count 1.77 X10^3/uL (0.83-4.51); Absolute Neutrophil Count 4.5 X10^3/uL (2.0-7.7); Basophil# 0.06 X10^3/uL; Basophil% 0.8 % (0-1); Eosinophil# 0.66 X10^3/uL; Eosinophils% 8.6 % (0-5); Hematocrit 46.8 % (40-54); Hemoglobin 14.8 g/dL (13.0-16.5); Lymphocyte # 1.77 X10^3/ul (0.83-4.51); Lymphocyte % 23.1 % (19-41); Mean Corp Hgb Conc 31.6 g/dL (32-36); Mean Corpuscular Hgb 27.3 pg (27.0-32.0); Mean Corpuscular Volume 86.3 fL (80-94); Mean Platelet Vol. 10.5 fl (6.2-12.0); Monocyte# 0.64 X10^3/uL; Monocyte% 8.3 % (0-10); NRBC Flagged by Analyzer 0 % (0-5); Neutrophil # 4.51 X10^3/uL (2.7-7.7); Neutrophil % 58.8 % (47-70); Platelet Count 233 K/mm3 (150-450); RBC Distribution Width CV 14.4 % (11.6-14.6); RBC Distribution Width SD 45.3 fl (35.1-43.9); Red Blood Count 5.42 M/mm3 (4.6-6.2); White Blood Count 7.7 K/mm3 (4.4-11.0)
[2024-06-30 13:20] LABS: ALB/GLOB Ratio 1.3 RATIO (0.9-2.4); AST(SGOT) < 3 U/L (15-37); Alanine Aminotransfer ALT/SGPT 24 U/L (16-61); Albumin, Serum 3.9 g/dL (3.2-5.0); Alkaline Phosphatase 80 U/L (45-117); Anion Gap 7 (5-15); BUN 27 mg/dL (7-18); BUN/Creat Ratio 21.4 RATIO (10-20); Calcium,Total 8.4 mg/dL (8.5-10.1); Chloride 102 mmol/L (98-107); Cholesterol 129 mg/dL (200); Creatinine, Serum 1.26 mg/dL (0.70-1.30); EST Glomerular Filtration Rate 61 mL/min (>60); Est Glom Filt Rate - Afr Amer 74 mL/min (>60); Glucose 181 mg/dL (74-106); High Density Lipoprotein 42 mg/dL; PSA,Total- Diagnostic 0.66 ng/mL (0.0-4.0); Potassium 4.4 mmol/L (3.5-5.1); Protein, Total 6.9 g/dL (6.4-8.2); Sodium Level 136 mmol/L (136-145); Triglycerides 298 mg/dL; Very Low Density Lipoprotein 60 mg/dL (5-40)
[2024-06-30 13:37] LABS: Microalbumin,Random Urine < 5.0 mg/L (NO RANGE EST.)
== END | disposition home or self-care (01) ==
LOC: BIMLAB 10:42
PROVIDERS: PCP Internal Medicine; Referring Provider Internal Medicine; Visit Provider Internal Medicine
DX: I10 Essential (primary) hypertension (principal); E11.65 Type 2 diabetes mellitus with hyperglycemia; N40.0 Benign prostatic hyperplasia without lower urinary tract symptoms
CPT/HCPCS: 36415; 80053; 80061; 82043; 82570; 84153; 85025